=== PATIENT | female | born 1960 | race Caucasian/White ===

== ENCOUNTER → 2017-11-24 06:51 | Outpatient (CLI) | payer MEDICAID, SELFPAY ==
[2017-11-24 07:49] LABS: Basophils % 0.6 % (0.1-2.0); Eosinophils # 0.2 K/mm3 (0.0-0.4); Eosinophils % 2.6 % (0.1-12.0); Hematocrit 45.4 % (37.0-47.0); Hemoglobin 14.6 g/dL (12.2-16.2); Lymphocytes # 1.9 K/mm3 (0.7-4.5); Lymphocytes % 23.5 K/mm3 (10-50); Mean Corpuscular HGB Conc 32.3 g/dL (31.8-35.4); Mean Corpuscular Hemoglobin 29.3 pg (27.0-31.2); Mean Corpuscular Volume 90.9 fl (81-99); Mean Platelet Volume 7.7 fl (7.4-10.4); Monocytes # 0.5 K/mm3 (0.1-1.0); Monocytes % 6.1 % (1.7-9.3); Neutrophils # 5.4 K/mm3 (1.8-7.8); Neutrophils % 67.3 % (37.0-80.0); Platelet Count 279 K/mm3 (142-424); Red Blood Count 4.99 M/mm3 (4.20-5.40); Red Cell Distribution Width 12.8 % (11.5-17.5)
[2017-11-24 08:07] LABS: Alanine Aminotransferase 33 U/L (12-78); Albumin Level 3.7 gm/dL (3.4-5.0); Albumin/Globulin Ratio 0.9 (1.1-1.8); Alkaline Phosphatase 85 U/L (46-116); Anion Gap 8.8 mEq/L (5-15); Aspartate Amino Transferase 16 U/L (15-37); Bilirubin,Total 0.6 mg/dL (0.2-1.0); Blood Urea Nitrogen 12 mg/dL (7-18); Calcium 9.1 mg/dL (8.5-10.1); Carbon Dioxide 31 mmol/L (21.0-32.0); Chloride 102 mmol/L (98-107); Chol/HDL Ratio 2.7 (1-3.5); Cholesterol 130 mg/dL (140-200); Creatinine,Serum 0.66 mg/dL (0.55-1.02); Estimated Glomerular Filt Rate 92 ml/min (>60); GFR (African American) 111 ML/MIN (>60); Globulin 4.2 gm/dl (1.3-3.2); Glucose 140 mg/dL (74-106); HDL Cholesterol 48 mg/dL (29-89); LDL Cholesterol 52 mg/dL (0-130); Potassium 3.8 mmoL/L (3.5-5.1); Sodium 138 mmol/L (136-145); Thyroid Stimulating Hormone 0.81 uIU/ml (0.358-3.740); Total Protein,Serum 7.9 gm/dL (6.4-8.2); Triglycerides 149 mg/dL (30-200); VLDL Cholesterol 30 mg/dL (0-40)
[2017-11-24 08:37] LABS: Hemoglobin A1C 6.4 % (0.0-7.0)
== END ==
PROVIDERS: PCP Internal Medicine Adolescent Medicine; Visit Provider Internal Medicine Adolescent Medicine
DX: E03.9 Hypothyroidism, unspecified (principal); E04.1 Nontoxic single thyroid nodule; E11.9 Type 2 diabetes mellitus without complications; E78.5 Hyperlipidemia, unspecified
CPT/HCPCS: 36415; 80053; 80061; 83036; 84443; 85025

== ENCOUNTER → 2017-12-28 10:11 | Outpatient (CLI) | payer MEDICAID, SELFPAY ==
--- NOTE | 2017-12-28 10:13 | MM_ITS ---
MM Dig screening mamm BI w/CAD CAD Screening ORDERING PHYSICIAN : Portillo Hooper MD PATIENT AGE: 57 years GENDER: Female COMPARISON: : November 2016, 2015, 2014 bilateral digital mammograms utilized INDICATION: No hormones. No new complaints Previous benign excisional biopsy right breast. Lumpectomy scar 10-11:00 Noncontributory family history TECHNIQUE: Standard CC and MLO images were obtained. R2 CAD reviewed. FINDINGS: Fairly low-density breast with minimal residual fibroglandular elements extending towards the upper outer quadrant of central portion of breast. No new findings. No dominant mass nor suspicious calcifications. . CAD computer review highlights no areas of concern either on today's study IMPRESSION: Stable bilateral mammogram. No new areas of concern. Bilateral follow-up in one year recommended. BI-RADS Category: 1 Negative RECOMMENDED FOLLOW-UP: 1YR - 1 YEAR FOLLOW-UP (A letter has been sent to the patient regarding results of the study.)
== END ==
PROVIDERS: Family Provider Internal Medicine Adolescent Medicine; PCP Internal Medicine Adolescent Medicine; Visit Provider Internal Medicine Adolescent Medicine
DX: Z12.31 Encounter for screening mammogram for malignant neoplasm of breast (principal)
CPT/HCPCS: 77067

== ENCOUNTER → 2018-07-07 13:14 | Outpatient (CLI) | payer MEDICAID, SELFPAY ==
--- NOTE | 2018-07-07 13:16 | MR_ITS ---
MR lumbar spine wo con, MR 3-d myelogram/MRCP HISTORY: Low back pain with right leg pain and numbness ITS.REASON: LUMBAR NEURALGIA ORDERING PHYSICIAN: Portillo Hooper MD PATIENT AGE: 58 years Comparison: 03/04/2013 TECHNIQUE: Standard multiplanar multiecho sequences are performed without contrast. 3-D MIP and myelographic images are also rendered and reviewed FINDINGS: There is a transitional segment at the lumbosacral junction. This is labeled as S1 on today's images previously this was labeled as L6. The spinal cord ends at the L1 level. L1-L2: Unremarkable. L2-L3: Unremarkable. L3-L4: There is minimal retrolisthesis of L3 x 3 mm with mild degenerative disc disease at that level and minimal bulging disc. There is mild facet and ligamentum flavum hypertrophy. L4-L5: Mild concentric bulging disc slightly eccentric towards the left with [id number] left-sided foraminal narrowing. Mild facet hypertrophic change. L5-S1: Degenerative disc disease with bulging disc. There is mild anterolisthesis of L5 of 3 mm. There is moderate right-sided foraminal narrowing from facet and ligamentum flavum hypertrophy and the bulging disc. There is mild left foraminal narrowing. Borderline canal narrowing at L5-S1 No disc herniation is evident. IMPRESSION: 1. L3-L4: There is minimal retrolisthesis of L3 x 3 mm with mild degenerative disc disease at that level and minimal bulging disc. There is mild facet and ligamentum flavum hypertrophy. 2. L4-L5: Mild concentric bulging disc slightly eccentric towards the left with [id number] left-sided foraminal narrowing. Mild facet hypertrophic change. 3. L5-S1: Degenerative disc disease with bulging disc. There is mild anterolisthesis of L5 of 3 mm. There is moderate right-sided foraminal narrowing from facet and ligamentum flavum hypertrophy and the bulging disc. There is mild left foraminal narrowing. Borderline canal narrowing at L5-S1. These findings are slightly worse on today's study when compared to the previous exam 4. There is a transitional segment at the lumbosacral junction. This is labeled as S1. Please correlate with lateral lumbar radiographs if any intervention is contemplated
--- NOTE | 2018-07-07 13:16 | MR_ITS ---
MR lumbar spine wo con, MR 3-d myelogram/MRCP HISTORY: Low back pain with right leg pain and numbness ITS.REASON: LUMBAR NEURALGIA ORDERING PHYSICIAN: Portillo Hooper MD PATIENT AGE: 58 years Comparison: 03/04/2013 TECHNIQUE: Standard multiplanar multiecho sequences are performed without contrast. 3-D MIP and myelographic images are also rendered and reviewed FINDINGS: There is a transitional segment at the lumbosacral junction. This is labeled as S1 on today's images previously this was labeled as L6. The spinal cord ends at the L1 level. L1-L2: Unremarkable. L2-L3: Unremarkable. L3-L4: There is minimal retrolisthesis of L3 x 3 mm with mild degenerative disc disease at that level and minimal bulging disc. There is mild facet and ligamentum flavum hypertrophy. L4-L5: Mild concentric bulging disc slightly eccentric towards the left with [id number]-[id number] left-sided foraminal narrowing. Mild facet hypertrophic change. L5-S1: Degenerative disc disease with bulging disc. There is mild anterolisthesis of L5 of 3 mm. There is moderate right-sided foraminal narrowing from facet and ligamentum flavum hypertrophy and the bulging disc. There is mild left foraminal narrowing. Borderline canal narrowing at L5-S1 No disc herniation is evident. IMPRESSION: 1. L3-L4: There is minimal retrolisthesis of L3 x 3 mm with mild degenerative disc disease at that level and minimal bulging disc. There is mild facet and ligamentum flavum hypertrophy. 2. L4-L5: Mild concentric bulging disc slightly eccentric towards the left with [id number] left-sided foraminal narrowing. Mild facet hypertrophic change. 3. L5-S1: Degenerative disc disease with bulging disc. There is mild anterolisthesis of L5 of 3 mm. There is moderate right-sided foraminal narrowing from facet and ligamentum flavum hypertrophy and the bulging disc. There is mild left foraminal narrowing. Borderline canal narrowing at L5-S1. These findings are slightly worse on today's study when compared to the previous exam 4. There is a transitional segment at the lumbosacral junction. This is labeled as S1. Please correlate with lateral lumbar radiographs if any intervention is contemplated
== END ==
PROVIDERS: Family Provider Internal Medicine Adolescent Medicine; PCP Internal Medicine Adolescent Medicine; Visit Provider Internal Medicine Adolescent Medicine
DX: M54.16 Radiculopathy, lumbar region (principal)
CPT/HCPCS: 72148; 76376

== ENCOUNTER → 2018-07-14 07:22 | Outpatient (CLI) | payer MEDICAID, SELFPAY ==
[2018-07-14 08:12] LABS: Basophils # 0.1 K/mm3 (0-0.2); Basophils % 0.6 % (0.1-2.0); Eosinophils # 0.2 K/mm3 (0.0-0.4); Eosinophils % 1.8 % (0.1-12.0); Hematocrit 42.2 % (37.0-47.0); Hemoglobin 13.7 g/dL (12.2-16.2); Lymphocytes # 1.8 K/mm3 (0.7-4.5); Lymphocytes % 20.2 K/mm3 (10-50); Mean Corpuscular HGB Conc 32.4 g/dL (31.8-35.4); Mean Corpuscular Hemoglobin 29.7 pg (27.0-31.2); Mean Corpuscular Volume 91.5 fl (81-99); Monocytes # 0.5 K/mm3 (0.1-1.0); Monocytes % 5.5 % (1.7-9.3); Neutrophils # 6.3 K/mm3 (1.8-7.8); Neutrophils % 71.9 % (37.0-80.0); Platelet Count 292 K/mm3 (142-424); Red Blood Count 4.61 M/mm3 (4.20-5.40); Red Cell Distribution Width 13.6 % (11.5-17.5); White Blood Count 8.7 K/mm3 (4.8-10.8)
[2018-07-14 08:23] LABS: Hemoglobin A1C 6.8 % (0.0-7.0)
[2018-07-14 08:44] LABS: Alanine Aminotransferase 29 U/L (12-78); Albumin Level 3.7 gm/dL (3.4-5.0); Albumin/Globulin Ratio 1.1 (1.1-1.8); Alkaline Phosphatase 82 U/L (46-116); Anion Gap 10.9 mEq/L (5-15); Aspartate Amino Transferase 15 U/L (15-37); Bilirubin,Total 0.5 mg/dL (0.2-1.0); Blood Urea Nitrogen 13 mg/dL (7-18); Calcium 9.3 mg/dL (8.5-10.1); Carbon Dioxide 32 mmol/L (21.0-32.0); Chloride 104 mmol/L (98-107); Chol/HDL Ratio 2.8 (1-3.5); Cholesterol 146 mg/dL (140-200); Creatinine,Serum 0.59 mg/dL (0.55-1.02); Estimated Glomerular Filt Rate 104 ml/min (>60); Free Thyroxine Index 3.3 ug/dL (5.93-13.13); GFR (African American) 126 ML/MIN (>60); Globulin 3.4 gm/dl (1.3-3.2); Glucose 99 mg/dL (74-106); HDL Cholesterol 53 mg/dL (29-89); LDL Cholesterol 67 mg/dL (0-130); Potassium 3.9 mmoL/L (3.5-5.1); Sodium 143 mmol/L (136-145); T4 (Thyroxine) 9.2 ug/dl (4.7-13.3); Thyroid Stimulating Hormone 1.68 uIU/ml (0.358-3.740); Total Protein,Serum 7.1 gm/dL (6.4-8.2); Triglycerides 132 mg/dL (30-200); Triiodothryronine (T3) Uptake 36 % (31-39); VLDL Cholesterol 26 mg/dL (0-40)
== END ==
PROVIDERS: PCP Internal Medicine Adolescent Medicine; Visit Provider Internal Medicine Adolescent Medicine
DX: E03.9 Hypothyroidism, unspecified (principal); E11.9 Type 2 diabetes mellitus without complications
CPT/HCPCS: 36415; 80053; 80061; 83036; 84436; 84443; 84479; 85025

== ENCOUNTER → 2018-11-10 07:38 | Outpatient (CLI) | payer MEDICAID, SELFPAY ==
[2018-11-10 09:37] LABS: Anion Gap 11.8 mEq/L (5-15); Blood Urea Nitrogen 14 mg/dL (7-18); Calcium 9.4 mg/dL (8.5-10.1); Carbon Dioxide 31 mmol/L (21.0-32.0); Chloride 104 mmol/L (98-107); Creatinine,Serum 0.65 mg/dL (0.55-1.02); Estimated Glomerular Filt Rate 93 ml/min (>60); Free Thyroxine Index 3.1 ug/dL (5.93-13.13); GFR (African American) 113 ML/MIN (>60); Glucose 143 mg/dL (74-106); Potassium 3.8 mmoL/L (3.5-5.1); Sodium 143 mmol/L (136-145); T4 (Thyroxine) 8.6 ug/dl (4.7-13.3); Thyroid Stimulating Hormone 1.28 uIU/ml (0.358-3.740); Triiodothryronine (T3) Uptake 36 % (31-39)
[2018-11-10 09:47] LABS: Hemoglobin A1C 6.8 % (0.0-7.0)
== END ==
PROVIDERS: Visit Provider Internal Medicine Adolescent Medicine
DX: E11.9 Type 2 diabetes mellitus without complications (principal); E03.9 Hypothyroidism, unspecified; I10 Essential (primary) hypertension
CPT/HCPCS: 36415; 80048; 83036; 84436; 84443; 84479

== ENCOUNTER → 2018-11-18 09:18 | Outpatient (CLI) | payer MEDICAID, SELFPAY ==
--- NOTE | 2018-11-18 09:20 | MM_ITS ---
MM Dig screening mamm BI w/CAD ORDERING PHYSICIAN : Portillo Hooper MD PATIENT AGE: 58 years GENDER: Female COMPARISON: December 2017, November 2016, 2015, 2014. INDICATION: /History.: Routine: Screening mammogram. No hormones. No new complaints. Previous benign excisional biopsy right breast. Noncontributory family history TECHNIQUE: Standard CC and MLO images were obtained. R2 CAD reviewed. FINDINGS: Rrvz-lg-[id number] residual fibroglandular elements, most evident towards superior breast, & upper outer quadrant both breasts. Similar pattern to previous studies with no significant new findings. No dominant mass nor suspicious calcifications. IMPRESSION: ......... Stable bilateral mammogram. No new areas of significant concern. . Bilateral follow-up one year recommended BI-RADS Category: 1 Negative RECOMMENDED FOLLOW-UP: 1YR 1 YEAR FOLLOW-UP (A letter has been sent to the patient regarding results of the study.)
== END ==
PROVIDERS: PCP Internal Medicine Adolescent Medicine; Visit Provider Internal Medicine Adolescent Medicine
DX: Z12.31 Encounter for screening mammogram for malignant neoplasm of breast (principal)
CPT/HCPCS: 77067

== ENCOUNTER → 2019-05-20 09:23 | Outpatient (CLI) | payer MEDICAID, SELFPAY ==
[2019-05-20 11:02] LABS: Alanine Aminotransferase 33 U/L (12-78); Albumin Level 3.9 gm/dL (3.4-5.0); Albumin/Globulin Ratio 1.2 (1.1-1.8); Alkaline Phosphatase 73 U/L (46-116); Aspartate Amino Transferase 25 U/L (15-37); Bilirubin,Total 0.7 mg/dL (0.2-1.0); Blood Urea Nitrogen 12 mg/dL (7-18); Calcium 9.3 mg/dL (8.5-10.1); Carbon Dioxide 32 mmol/L (21.0-32.0); Chloride 103 mmol/L (98-107); Chol/HDL Ratio 2.9 (1-3.5); Cholesterol 141 mg/dL (140-200); Creatinine,Serum 0.65 mg/dL (0.55-1.02); Estimated Glomerular Filt Rate 93 ml/min (>60); Free Thyroxine Index 3.2 ug/dL (5.93-13.13); GFR (African American) 113 ML/MIN (>60); Globulin 3.2 gm/dl (1.3-3.2); Glucose 136 mg/dL (74-106); HDL Cholesterol 49 mg/dL (29-89); LDL Cholesterol 64 mg/dL (0-130); Sodium 141 mmol/L (136-145); Total Protein,Serum 7.1 gm/dL (6.4-8.2); Triglycerides 138 mg/dL (30-200); Triiodothryronine (T3) Uptake 36 % (31-39); VLDL Cholesterol 28 mg/dL (0-40)
== END ==
PROVIDERS: Visit Provider Internal Medicine Adolescent Medicine
DX: E11.9 Type 2 diabetes mellitus without complications (principal); E03.9 Hypothyroidism, unspecified
CPT/HCPCS: 36415; 80053; 80061; 84436; 84443; 84479

== ENCOUNTER → 2019-08-24 09:53 | Outpatient (CLI) | payer OTHER, SELFPAY ==
[2019-08-24 10:29] LABS: Basophils # 0.1 K/mm3 (0-0.2); Basophils % 0.7 % (0.1-2.0); Eosinophils # 0.2 K/mm3 (0.0-0.4); Eosinophils % 1.9 % (0.1-12.0); Hematocrit 42.4 % (37.0-47.0); Hemoglobin 13.6 g/dL (12.2-16.2); Lymphocytes # 1.6 K/mm3 (0.7-4.5); Lymphocytes % 18.6 % (10-50); Mean Corpuscular Hemoglobin 29.3 pg (27.0-31.2); Mean Corpuscular Volume 91.6 fl (81-99); Mean Platelet Volume 7.5 fl (7.4-10.4); Monocytes # 0.5 K/mm3 (0.1-1.0); Monocytes % 5.5 % (1.7-9.3); Neutrophils # 6.2 K/mm3 (1.8-7.8); Neutrophils % 73.3 % (37.0-80.0); Platelet Count 296 K/mm3 (142-424); Red Blood Count 4.63 M/mm3 (4.20-5.40); Red Cell Distribution Width 13.4 % (11.5-17.5); White Blood Count 8.5 K/mm3 (4.8-10.8)
[2019-08-24 11:24] LABS: Hemoglobin A1C 7.1 % (0.0-7.0)
[2019-08-24 11:36] LABS: Alanine Aminotransferase 27 U/L (12-78); Albumin Level 3.8 gm/dL (3.4-5.0); Albumin/Globulin Ratio 1.1 (1.1-1.8); Alkaline Phosphatase 84 U/L (46-116); Aspartate Amino Transferase 18 U/L (15-37); Bilirubin,Total 0.6 mg/dL (0.2-1.0); Blood Urea Nitrogen 14 mg/dL (7-18); Calcium 8.8 mg/dL (8.5-10.1); Carbon Dioxide 28 mmol/L (21.0-32.0); Chloride 103 mmol/L (98-107); Cholesterol 150 mg/dL (140-200); Creatinine,Serum 0.61 mg/dL (0.55-1.02); Estimated Glomerular Filt Rate 100 ml/min (>60); GFR (African American) 121 ML/MIN (>60); Globulin 3.4 gm/dl (1.3-3.2); Glucose 143 mg/dL (74-106); HDL Cholesterol 50 mg/dL (29-89); LDL Cholesterol 72 mg/dL (0-130); Sodium 141 mmol/L (136-145); Thyroid Stimulating Hormone 0.76 uIU/ml (0.358-3.740); Total Protein,Serum 7.2 gm/dL (6.4-8.2); Triglycerides 140 mg/dL (30-200); VLDL Cholesterol 28 mg/dL (0-40)
== END ==
PROVIDERS: Visit Provider Internal Medicine Adolescent Medicine
DX: E03.9 Hypothyroidism, unspecified (principal); E11.9 Type 2 diabetes mellitus without complications
CPT/HCPCS: 36415; 80053; 80061; 83036; 84443; 85025

== ENCOUNTER → 2019-11-21 08:44 | Outpatient (CLI) | payer OTHER, SELFPAY ==
--- NOTE | 2019-11-21 08:52 | MM_ITS ---
PROCEDURE: MM DIG SCREENING MAMM BI W/CAD CLINICAL INDICATION: SCREENING There is no personal or family history of breast cancer. There has been a previous biopsy right breast for benign disease. COMPARISON: [facility] DIG MAMM-SCREEN SEGUNDO W/CAD from 12/19/2016 [facility] MM Dig screening mamm BI w/CAD from 12/28/2017 [facility] MM Dig screening mamm BI w/CAD from 11/18/2018 TECHNIQUE: Standard CC and MLO images and 3D Tomosynthesis was obtained. R2 CAD reviewed. FINDINGS: The breasts are composed primarily of fat with minimal residual glandular elements in the central portions of both breasts. There is a mole marker right breast. David images were reviewed. There is no suspicious lesion in either breast and no suspicious microcalcifications. IMPRESSION: Fatty type breast parenchyma with no suspicious lesions seen BI-RAD Category: 1 Negative FOLLOW-UP: 1YR 1 Year Follow-up (A letter has been sent to the patient regarding results of the study.) Dictated by: Dr. Claude Nino MD 11/24/2019 09:[address] Claude Nino MD in [place] 11/24/2019 09:54
== END ==
PROVIDERS: PCP Internal Medicine Adolescent Medicine; Visit Provider Nurse Practitioner Family
DX: Z12.31 Encounter for screening mammogram for malignant neoplasm of breast (principal)
CPT/HCPCS: 77063; 77067

== ENCOUNTER → 2020-04-10 08:56 | Outpatient (CLI) | payer OTHER, SELFPAY ==
[2020-04-10 09:48] LABS: Basophils # 0.1 K/mm3 (0-0.2); Basophils % 0.9 % (0.1-2.0); Eosinophils # 0.2 K/mm3 (0.0-0.4); Eosinophils % 3.1 % (0.1-12.0); Hematocrit 41.1 % (37.0-47.0); Hemoglobin 13.3 g/dL (12.2-16.2); Lymphocytes # 1.6 K/mm3 (0.7-4.5); Lymphocytes % 29.4 % (10-50); Mean Corpuscular HGB Conc 32.3 g/dL (31.8-35.4); Mean Platelet Volume 7.4 fl (7.4-10.4); Monocytes # 0.4 K/mm3 (0.1-1.0); Monocytes % 6.4 % (1.7-9.3); Neutrophils # 3.3 K/mm3 (1.8-7.8); Neutrophils % 60.1 % (37.0-80.0); Platelet Count 239 K/mm3 (142-424); Red Blood Count 4.42 M/mm3 (4.20-5.40); Red Cell Distribution Width 13.8 % (11.5-17.5); White Blood Count 5.6 K/mm3 (4.8-10.8)
[2020-04-10 10:28] LABS: Alanine Aminotransferase 41 U/L (12-78); Albumin Level 4.1 g/dl (3.5-5.0); Albumin/Globulin Ratio 1.4 (1.1-1.8); Alkaline Phosphatase 108 U/L (38-126); Anion Gap 11.5 mEq/L (5-15); Aspartate Amino Transferase 43 U/L (14-36); Bilirubin,Total 0.8 mg/dl (0.2-1.3); Blood Urea Nitrogen 11 mg/dl (7-17); Calcium 9.6 mg/dl (8.4-10.2); Carbon Dioxide 32 mmol/L (22.0-30.0); Chloride 101 mmol/L (98-107); Chol/HDL Ratio 3.2 (1-3.5); Cholesterol 142 mg/dl (140-200); Estimated Glomerular Filt Rate 125 ml/min (>60); GFR (African American) 152 ML/MIN (>60); Glucose 148 mg/dl (74-100); HDL Cholesterol 44 mg/dl (40-60); Potassium 4.5 mmoL/L (3.5-5.1); Sodium 140 mmol/L (136-145); Total Protein,Serum 7.1 g/dl (6.3-8.2); Triglycerides 187 mg/dl (30-150); VLDL Cholesterol 37 mg/dL (0-40)
[2020-04-10 10:38] LABS: Direct LDL Cholesterol 73.13 mg/dL (100-129)
[2020-04-10 11:02] LABS: Thyroid Stimulating Hormone 0.95 uIU/mL (0.465-4.68)
[2020-04-10 11:31] LABS: Hemoglobin A1C 6.8 % (4.0-6.0)
[2020-04-10 12:49] LABS: Coronavirus 19 IgG Antibody Negative (Negative); Coronavirus 19 IgM Antibody Negative (Negative)
== END ==
PROVIDERS: Visit Provider Internal Medicine Adolescent Medicine
DX: Z20.828 Contact with and (suspected) exposure to other viral communicable diseases (principal); E78.5 Hyperlipidemia, unspecified; E11.9 Type 2 diabetes mellitus without complications; E03.9 Hypothyroidism, unspecified; I10 Essential (primary) hypertension; Z79.84 Long term (current) use of oral hypoglycemic drugs
CPT/HCPCS: 36415; 80053; 80061; 83036; 84443; 85025; 86328

== ENCOUNTER 2020-05-04 10:36 | Outpatient (RCR) | payer OTHER, SELFPAY ==
--- NOTE | 2020-05-04 12:40 | HMH.OTOPEV ---
OT Inpatient Evaluation Rehab OT Outpatient Eval Start: 05/04/20 11:57 Freq: Status: Active Protocol: Document 05/04/20 11:58 MICHAELJAMEE (Rec: 05/04/20 12:40 DEION [id number]) Electronically Signed By Sbaa Edwards OT 05/04/20 11:58 Outpatient Therapy Subjective History Subjective History 60 year old female referred to OP OT services after having left shoulder pain for ~2 months. Patient stated injury occured after lifting heavy furniture. Patient stated being allergic to latex. Chief Complaint Pain,Weakness,Decreased Draw Furnace Tender Strength Symptom Type Ache Symptoms Relieved By OTC Meds Symptoms Aggravated By Physical Activity,Lifting Prior Functional Limitations None Current Functional Limitations Reaching,Lifting Symptom Description Constant and Continuous Level of pain today (0-10) 7 Pain scale - at its best (0-10) 7 Pain scale - at its worst (0-10) 9 Shoulder/Elbow Eval Shoulder Objective Measurements Shoulder ROM Left Shoulder Abduction Active Range of 90 Motion (degrees) Shoulder Flexion Active Range of Motion 130 (degrees) Query Text: Shoulder External Rotation Active Range 70 of Motion (degrees) Shoulder Internal Rotation Active Range 55 of Motion (degrees) pain with active ROM shoulder exam left standard Shoulder MMT Shoulder Extension Strength Grade 3+ Fair+ Shoulder Flexion Strength Grade 3+ Fair+ Shoulder Horizontal Abduction Strength 3+ Fair+ Grade Shoulder Horizontal Adduction Strength 3+ Fair+ Grade Infraspinatus/Teres Minor Strength Grade 3+ Fair+ Shoulder External Rotation Strength 3+ Fair+ Grade Shoulder Internal Rotation Strength 3+ Fair+ Grade Shoulder Special Tests impingement sign present shoulder exam left standard Shoulder Drop Arm Test Negative Left Shoulder Empty Can (Supraspinatus) Test Negative Left Shoulder Vargas-Richard Impingement Positive Left Test Elbow Objective Measurements OT Outpatient Assessment Impairments Problems/Impairments Impaired Range of Motion, Impaired Strength,Impaired Endurance,Subjective C/O Pain Prognosis Rehab Potential Good Clinical Impression Consistent with Diagnosis Yes Short Term Goals Number of Weeks 2 Increase Range of Motion Yes: AROM of L U
== END 2020-05-04 11:24 | disposition home or self-care (01) ==
LOC: OT 10:36
PROVIDERS: PCP Internal Medicine Adolescent Medicine; Visit Provider Internal Medicine Adolescent Medicine
DX: M75.22 Bicipital tendinitis, left shoulder (principal)
CPT/HCPCS: 97165

== ENCOUNTER → 2020-05-09 14:37 | Outpatient (CLI) | payer OTHER, SELFPAY | PROVIDERS: PCP Internal Medicine Adolescent Medicine; Visit Provider Internal Medicine Adolescent Medicine | DX: Z03.818 Encounter for observation for suspected exposure to other biological agents ruled out (principal) | CPT/HCPCS: U0003 ==

== ENCOUNTER → 2020-07-17 10:26 | Outpatient (CLI) | payer OTHER, SELFPAY ==
[2020-07-18 08:16] LABS: Hep A Ab, IgM Negative (Negative); Hepatitis B Core Antibody IgM Negative (Negative); Hepatitis B Surface Antigen Negative (Negative)
[2020-07-18 13:53] LABS: HIV Screen 4th Generation wRfx Non Reactive (Non Reactive); Hepatitis C Antibody <0.1 s/co ratio (0.0-0.9); Rapid Plasma Reagin Ab Titer Non Reactive (NonRea<1:1)
== END ==
PROVIDERS: Visit Provider Obstetrics & Gynecology
DX: Z01.419 Encounter for gynecological examination (general) (routine) without abnormal findings (principal)
CPT/HCPCS: 80074; 86592; 86703; G0432

== ENCOUNTER → 2020-09-24 16:56 | Outpatient (CLI) | payer OTHER, SELFPAY ==
[2020-09-28 07:55] LABS: Neisseria gonorrhoeae, NAA Negative (Negative)
== END ==
LOC: LAB 16:59 → LAB.DROPOF 09-25 09:29
PROVIDERS: Visit Provider Obstetrics & Gynecology
DX: Z72.51 High risk heterosexual behavior (principal)
CPT/HCPCS: 87491; 87591

== ENCOUNTER → 2021-01-14 10:40 | Outpatient (CLI) | payer OTHER, SELFPAY ==
--- NOTE | 2021-01-14 10:42 | MM_ITS ---
PROCEDURE INFORMATION: Exam: MG Screening 3D Mammography Exam date and time: 01/14/2021 10:42 AM Age: 61 years old Clinical indication: Encounter for screening mammogram for malignant neoplasm of breast TECHNIQUE: Imaging protocol: Screening tomosynthesis and 2D mammography including computer-aided detection (CAD) when performed. COMPARISON: 1. MG MM DIG SCREENING MAMM BI W/CAD 11/21/2019 9:15 AM 2. MG [facility] MM Dig screening mamm BI w/CAD 11/18/2018 9:25 AM 3. MG [facility] MM Dig screening mamm BI w/CAD 12/28/2017 10:24 AM 4. MG [facility] DIG MAMM-SCREEN SEGUNDO W/CAD 12/19/2016 10:44 AM FINDINGS: MAMMOGRAPHY: Breast composition: There are scattered areas of fibroglandular density. Mass: No new suspicious masses. Architectural distortion: No suspicious distortion. Calcifications: No suspicious calcifications. Asymmetric density: None. Skin thickening: None. Axillary adenopathy: None. IMPRESSION: No mammographic evidence of malignancy. Annual screening is recommended unless otherwise clinically indicated. ASSESSMENT: BI-RADS Category 1: Negative
== END ==
PROVIDERS: PCP Internal Medicine Adolescent Medicine; Visit Provider Internal Medicine Adolescent Medicine
DX: Z12.31 Encounter for screening mammogram for malignant neoplasm of breast (principal)
CPT/HCPCS: 77063; 77067

== ENCOUNTER → 2021-01-21 12:23 | Outpatient (CLI) | payer OTHER, SELFPAY ==
--- NOTE | 2021-01-21 12:27 | XR_ITS ---
PROCEDURE: XR KNEE LT 3V CLINICAL INDICATION: LT KNEE PAIN COMPARISON: No exams were available for comparison FINDINGS: No fracture or dislocation. No lytic or blastic change. There is normal mineralization. Mild osteoarthritic changes are present involving the medial compartment in patellofemoral joint. Other findings:None. IMPRESSION: Mild osteoarthritis otherwise negative Dictated by: Jose Marte MD 01/21/2021 16:06 Jose Marte MD in [place] 01/21/2021 16:06
== END ==
PROVIDERS: PCP Internal Medicine Adolescent Medicine; Visit Provider Internal Medicine Adolescent Medicine
DX: M25.562 Pain in left knee (principal)
CPT/HCPCS: 73562

== ENCOUNTER → 2021-05-15 10:44 | Outpatient (CLI) | payer OTHER, SELFPAY ==
[2021-05-15 11:08] LABS: Basophils # 0.1 K/mm3 (0-0.2); Basophils % 0.8 % (0.1-2.0); Eosinophils # 0.1 K/mm3 (0.0-0.4); Eosinophils % 1.4 % (0.1-12.0); Hematocrit 44.4 % (37.0-47.0); Hemoglobin 14.6 g/dL (12.2-16.2); Lymphocytes # 2.2 K/mm3 (0.7-4.5); Lymphocytes % 24.3 % (10-50); Mean Corpuscular Hemoglobin 30.6 pg (27.0-31.2); Mean Corpuscular Volume 92.8 fl (81-99); Monocytes # 0.5 K/mm3 (0.1-1.0); Monocytes % 5.2 % (1.7-9.3); Neutrophils # 6.1 K/mm3 (1.8-7.8); Neutrophils % 68.2 % (37.0-80.0); Platelet Count 323 K/mm3 (142-424); Red Blood Count 4.78 M/mm3 (4.20-5.40); Red Cell Distribution Width 13.6 % (11.5-17.5); White Blood Count 8.9 K/mm3 (4.8-10.8)
[2021-05-15 11:32] LABS: Alanine Aminotransferase 17 U/L (12-78); Albumin Level 4.1 g/dl (3.5-5.0); Albumin/Globulin Ratio 1.3 (1.1-1.8); Alkaline Phosphatase 76 U/L (38-126); Anion Gap 11.8 mEq/L (5-15); Aspartate Amino Transferase 23 U/L (14-36); Bilirubin,Total 0.6 mg/dl (0.2-1.3); Blood Urea Nitrogen 10 mg/dl (7-17); Calcium 9.4 mg/dl (8.4-10.2); Carbon Dioxide 32 mmol/L (22.0-30.0); Chloride 102 mmol/L (98-107); Chol/HDL Ratio 3.8 (1-3.5); Cholesterol 230 mg/dl (140-200); Estimated Glomerular Filt Rate 101 ml/min (>60); GFR (African American) 123 ML/MIN (>60); Globulin 3.1 g/dL (1.3-3.2); Glucose 140 mg/dl (74-100); HDL Cholesterol 61 mg/dl (40-60); Potassium 3.8 mmoL/L (3.5-5.1); Sodium 142 mmol/L (136-145); Total Protein,Serum 7.2 g/dl (6.3-8.2); Triglycerides 171 mg/dl (30-150); VLDL Cholesterol 34 mg/dL (0-40)
[2021-05-15 11:44] LABS: Direct LDL Cholesterol 127.66 mg/dL (100-129)
[2021-05-15 12:04] LABS: Thyroid Stimulating Hormone 1.02 uIU/mL (0.465-4.68)
== END ==
PROVIDERS: Visit Provider Internal Medicine Adolescent Medicine
DX: E03.9 Hypothyroidism, unspecified (principal); E78.5 Hyperlipidemia, unspecified; E11.9 Type 2 diabetes mellitus without complications; Z79.84 Long term (current) use of oral hypoglycemic drugs
CPT/HCPCS: 36415; 80053; 80061; 83036; 84443; 85025

== ENCOUNTER → 2021-06-06 09:28 | Outpatient (CLI) | payer OTHER, SELFPAY ==
--- NOTE | 2021-06-06 09:36 | XR_ITS ---
PROCEDURE: XR CHEST 2V CLINICAL HISTORY: PERSISTENT COUGH COMPARISON: No exams were available for comparison FINDINGS: The cardiomediastinal silhouette and pulmonary vascularity are within normal limits. The lungs are clear without infiltrates, suspicious nodules, or pleural effusions. There are mild degenerative changes in the thoracic spine IMPRESSION: No acute findings. Dictated by: Jose Marte MD 06/06/2021 10:20 Jose Marte MD in [place] 06/06/2021 10:20
== END ==
PROVIDERS: PCP Internal Medicine Adolescent Medicine; Visit Provider Nurse Practitioner Family
DX: R05 Cough (principal)
CPT/HCPCS: 71046

== ENCOUNTER → 2021-12-26 09:50 | Outpatient (CLI) | payer OTHER, SELFPAY ==
--- NOTE | 2021-12-26 09:56 | XR_ITS ---
FINAL REPORT CLINICAL HISTORY: pain, no recent known injury, hx of ankle sx FINDINGS: LEFT HIP Two views of the left hip demonstrate no acute fracture or dislocation. There are mild degenerative changes of the left hip and the lower lumbar spine. The visualized bony structures are well aligned. No soft tissue abnormality is seen. IMPRESSION: Mild degenerative change of the left hip and lower lumbar spine. Reviewed, Interpreted and Dictated by Storm Hunter III, MD Transcribed by Brandy Raya Authenticated by Storm Hunter III, MD on 12/26/2021 10:46:25 AM [facility]
--- NOTE | 2021-12-26 09:57 | XR_ITS ---
FINAL REPORT CLINICAL HISTORY: PAIN, hx of ankle sx, no recent known injury FINDINGS: LEFT KNEE Three views of the left knee were obtained. There is no acute fracture or dislocation. There are mild medial compartment degenerative changes. There is no joint effusion. Soft tissues are unremarkable. IMPRESSION: Mild medial compartment degenerative change. Reviewed, Interpreted and Dictated by Storm Hunter III, MD Transcribed by Brandy Raya Authenticated by Storm Hunter III, MD on 12/26/2021 10:51:04 AM [facility]
== END ==
PROVIDERS: PCP Internal Medicine Adolescent Medicine; Visit Provider Internal Medicine Adolescent Medicine
DX: M25.552 Pain in left hip (principal); M25.562 Pain in left knee
CPT/HCPCS: 73502; 73562

== ENCOUNTER → 2022-02-11 09:53 | Outpatient (CLI) | payer OTHER, SELFPAY ==
--- NOTE | 2022-02-11 09:56 | MM_ITS ---
PROCEDURE INFORMATION: Exam: MG Bilateral Screening 3D Mammography Exam date and time: 02/11/2022 10:17 AM Age: 62 years old Clinical indication: Screening examination. No family history of breast cancer. TECHNIQUE: Imaging protocol: Bilateral Screening tomosynthesis and 2D mammography including computer-aided detection (CAD) when performed. COMPARISON: 1. MG MM DIG SCREENING MAMM BI W/CAD 01/14/2021 11:01 AM 2. MG MM DIG SCREENING MAMM BI W/CAD 11/21/2019 9:15 AM 3. MG [facility] MM Dig screening mamm BI w/CAD 11/18/2018 9:25 AM 4. MG [facility] MM Dig screening mamm BI w/CAD 12/28/2017 10:24 AM FINDINGS: MAMMOGRAPHY: Breast composition: There are scattered areas of fibroglandular density. Mass: None. Architectural distortion: None. Calcifications: No suspicious calcifications. Asymmetric density: None. Skin thickening: None. Axillary adenopathy: None. IMPRESSION: No mammographic evidence of malignancy. Annual screening is recommended unless otherwise clinically indicated. ASSESSMENT: BI-RADS Category 1: Negative
== END ==
PROVIDERS: PCP Internal Medicine Adolescent Medicine; Visit Provider Internal Medicine Adolescent Medicine
DX: Z12.31 Encounter for screening mammogram for malignant neoplasm of breast (principal)
CPT/HCPCS: 77063; 77067

== ENCOUNTER 2022-07-29 07:09 | Day surgery (SDC) | payer OTHER, SELFPAY ==
[2022-07-29 07:46] VITALS: BP 126/72; PULSE 68; RESP 18; TEMP 36.1; O2SAT 97; BMI 33.2
[2022-07-29 07:52] LABS: POC Glucose,Bedside 138 (70-110)
--- NOTE | 2022-07-29 07:55 | P.PN_ITS ---
[facility] Medical History (Updated 07/29/22 @ 07:45 by Abdirahman Pryor RN) History of ankle fracture History of anxiety History of breast abscess History of chronic hypertension History of diabetes mellitus History of thyroid disease Surgical History (Updated 07/29/22 @ 07:45 by Abdirahman Pryor RN) History of delivery History of surgical removal of ganglion cyst Family History (Updated 07/29/22 @ 07:45 by Abdirahman Pryor RN) Other Family history of cardiomyopathy Family history of diabetes mellitus type I Social History (Updated 07/29/22 @ 07:46 by Abdirahman Pryor RN) Smoking Status: Never smoker alcohol intake: never substance use type: denies use current occupational status: retired Travel in the last 8 weeks: None household members: none housing: house current occupational exposures/hazards: No caffeine: Yes [facility] Anesthesia Checklist Patient Identification Patient Identification: Arm Band Structural Data Admitted From: Home Planned Operative Procedure/s: Colonoscopy Consent for Planned Operative Procedure(s) Verified: Yes Verified Documents: Surgical Consent and History and Physical NPO Status Verified Time NPO: 00:00 Additional verifications Anesthesia Reactions: No Airway Assessment C-Spine Mobility Assessed: Yes TMJ Mobility Assessed: Yes Dentition: Good Dentition Neurological Assessment Level of Consciousness: Awake and Alert Anesthesia Plan Anesthesia Risk discussed: Yes Anesthesia Plan: Verified ASA Class: II Anesthesia Type: MAC
[2022-07-29 08:23] VITALS: O2SAT 97
--- NOTE | 2022-07-29 09:01 | HMH.SCOPE ---
Procedure: Date: 07/29/22 Patient Date of :: 1960 Procedure Performed:: Colonoscopy with polypectomy Indications:: History of polyps Performing Provider:: Larry Quezada MD Referring Provider:: . Sedation:: Monitored anesthesia care Procedure:: After informed consent was obtained the patient was taken to the endoscopy suite. Sedation ensued after the patient was transferred to the left lateral decubitus position. Pulse, blood pressure, and oxygen saturation were monitored throughout the procedure. Digital rectal exam revealed no significant abnormality. The colonoscope was placed in position. The entire colon was evaluated. The colonoscope was carefully removed and the patient was transferred to recovery in stable condition. Please see findings and specimens below for detail. Findings:: Bowel preparation moderate Fairly significant lack of relaxation (particularly sigmoid) For adjacent hyperplastic-appearing polyps around 15 cm Specimens:: 4 adjacent hyperplastic-appearing polyps around 15 cm (cold biopsy forceps) Recommendations:: Timing of repeat colonoscopy is pending pathology but will likely be around 3-5 years. Complications:: No immediate Estimated blood obtained (mL): 0
[2022-07-29 09:03] VITALS: BP 85/51; PULSE 56; RESP 16; TEMP 36.6; O2SAT 90
[2022-07-29 09:13] VITALS: BP 122/66; PULSE 65; RESP 17; O2SAT 93
[2022-07-29 09:23] VITALS: BP 105/84; PULSE 64; RESP 18; O2SAT 92
[2022-07-29 09:33] VITALS: BP 108/58; PULSE 57; RESP 18; O2SAT 93
== END 2022-07-29 09:35 | disposition home or self-care (01) ==
PROVIDERS: PCP Internal Medicine Adolescent Medicine; Visit Provider Surgery
PROC: 0DJD8ZZ Inspection of Lower Intestinal Tract, Via Natural or Artificial Opening Endoscopic (ICD-10-PCS; CPT 45380; principal; 2022-07-29 08:30)
DX: Z12.11 Encounter for screening for malignant neoplasm of colon (principal); K63.5 Polyp of colon; Z86.010 Personal history of colon polyps; E11.9 Type 2 diabetes mellitus without complications
CPT/HCPCS: 45380; 82962

== ENCOUNTER → 2023-03-10 10:42 | Outpatient (CLI) | payer OTHER, SELFPAY ==
--- NOTE | 2023-03-10 10:42 | MM_ITS ---
PROCEDURE INFORMATION: Exam: MG Bilateral Screening 3D Mammography Exam date and time: 03/10/2023 10:33 AM Age: 63 years old Clinical indication: Screening examination TECHNIQUE: Imaging protocol: Bilateral Screening tomosynthesis and 2D mammography including computer-aided detection (CAD) when performed. COMPARISON: 1. MG MM DIG SCREENING MAMM BI W/CAD 02/11/2022 10:17 AM 2. MG MM DIG SCREENING MAMM BI W/CAD 01/14/2021 11:01 AM FINDINGS: MAMMOGRAPHY: Breast composition: There are scattered areas of fibroglandular density. Mass: None. Architectural distortion: None. Calcifications: No suspicious calcifications. Asymmetric density: None. Skin thickening: None. Axillary adenopathy: None. IMPRESSION: No mammographic evidence of malignancy. Annual screening is recommended unless otherwise clinically indicated. ASSESSMENT: BI-RADS Category 1: Negative
== END ==
PROVIDERS: PCP Internal Medicine Adolescent Medicine; Visit Provider Obstetrics & Gynecology
DX: Z12.31 Encounter for screening mammogram for malignant neoplasm of breast (principal)
CPT/HCPCS: 77063; 77067

== ENCOUNTER 2023-07-07 08:12 | Day surgery (SDC) | payer OTHER, SELFPAY ==
[2023-07-03 16:17] VITALS: BMI 28.3
[2023-07-07] VITALS (7 sets, daily range): BP systolic 86–148; BP diastolic 49–78; PULSE 62–74; RESP 14–18; TEMP 36.1–36.2; O2SAT 86–98
[2023-07-07 08:50] LABS: POC Glucose,Bedside 137 (70-110)
--- NOTE | 2023-07-07 09:01 | P.PNANES_ITS ---
[facility] Disclaimer: The information contained in this section may have been updated after the patient was seen, as this information can be updated by other users. Medical History History of ankle fracture History of anxiety History of breast abscess History of chronic hypertension History of diabetes mellitus History of thyroid disease Surgical History History of delivery History of colonoscopy History of surgical removal of ganglion cyst Family History Other Family history of cardiomyopathy Family history of diabetes mellitus type I Social History Smoking Status: Never smoker alcohol intake: current substance use type: denies use current occupational status: retired Travel in the last 8 weeks: None household members: none housing: house current occupational exposures/hazards: No caffeine: Yes [facility] Anesthesia Checklist Patient Identification Patient Identification: Arm Band and Verbal (Name & ) Structural Data Admitted From: Home Planned Operative Procedure/s: Colonoscopy Consent for Planned Operative Procedure(s) Verified: Yes NPO Status Verified Time NPO: 00:00 Additional verifications Anesthesia Reactions: No Airway Assessment Mallampati Score:: Class II C-Spine Mobility Assessed: Yes TMJ Mobility Assessed: Yes Dentition: Good Dentition Neurological Assessment Level of Consciousness: Awake Hx Seizures: No Numbness or tingling in extremities: No Anesthesia Plan Anesthesia Risk discussed: Yes Anesthesia Plan: Verified ASA Class: III Anesthesia Type: MAC
--- NOTE | 2023-07-07 09:07 | HMH.SCOPE ---
Procedure: Date: 07/07/23 Patient Date of :: 1960 Procedure Performed:: Colonoscopy Indications:: History of colon polyps Colonoscopy July 2022 was somewhat complicated by moderate bowel preparation and poor relaxation. Adjacent sessile serrated adenomas were excised at 15 cm. Performing Provider:: Larry Quezada MD Referring Provider:: . Sedation:: Monitored anesthesia care Procedure:: After informed consent was obtained the patient was taken to the endoscopy suite. Sedation ensued after the patient was transferred to the left lateral decubitus position. Pulse, blood pressure, and oxygen saturation were monitored throughout the procedure. Digital rectal exam revealed no significant abnormality. The colonoscope was placed in position. The entire colon was evaluated. The colonoscope was carefully removed and the patient was transferred to recovery in stable condition. Please see findings and specimens below for detail. Findings:: Bowel preparation moderate to poor Profound lack of relaxation/spasticity Severe tortuosity Adjacent right colon polyps (x3) Specimens:: Adjacent right colon polyps (x3) -cold snare Recommendations:: Timing of repeat colonoscopy is pending pathology but likely be around 1-2 years with extended bowel preparation secondary to limited preparation, lack of relaxation/spasticity, and tortuosity. Complications:: No immediate Estimated blood obtained (mL): 1 Colonoscopy Component Colonoscopy Component Was a colonoscopy performed during today's procedure?: Yes Recommended follow up colonoscopy of at least 10 years?: No If no, follow up colonoscopy recommended in ___ years?: (See above) Reason for not recommending >/= 10 yr follow-up interval?: (See above)
== END 2023-07-07 10:31 | disposition home or self-care (01) ==
PROVIDERS: PCP Internal Medicine Adolescent Medicine; Visit Provider Surgery
PROC: 0DJD8ZZ Inspection of Lower Intestinal Tract, Via Natural or Artificial Opening Endoscopic (ICD-10-PCS; CPT 45385; principal; 2023-07-07 09:30)
DX: Z12.11 Encounter for screening for malignant neoplasm of colon (principal); Z86.010 Personal history of colon polyps; K56.2 Volvulus; D12.2 Benign neoplasm of ascending colon; E11.9 Type 2 diabetes mellitus without complications
CPT/HCPCS: 45385; 82962; J2405; J2704

== ENCOUNTER 2024-05-04 11:33 | Outpatient (CLI) | payer MEDICARE, OTHER, SELFPAY ==
--- NOTE | 2024-05-04 11:36 | MM_ITS ---
PROCEDURE INFORMATION: Exam: MG Bilateral Screening 3D Mammography Exam date and time: 05/04/2024 11:25 AM Age: 64 years old Clinical indication: Screening. No family history of breast cancer. TECHNIQUE: Imaging protocol: Bilateral Screening tomosynthesis and 2D mammography including computer-aided detection (CAD) when performed. COMPARISON: 1. MG MM DIG SCREENING MAMM BI W/CAD 03/10/2023 10:33 AM 2. MG MM DIG SCREENING MAMM BI W/CAD 02/11/2022 10:17 AM 3. MG MM DIG SCREENING MAMM BI W/CAD 01/14/2021 11:01 AM 4. MG MM DIG SCREENING MAMM BI W/CAD 11/21/2019 9:15 AM FINDINGS: MAMMOGRAPHY: Breast composition: There are scattered areas of fibroglandular density. Mass: None. Architectural distortion: None. Calcifications: No suspicious calcifications. Asymmetric density: None. Skin thickening: None. Axillary adenopathy: None. IMPRESSION: No mammographic evidence of malignancy. Annual screening is recommended unless otherwise clinically indicated. ASSESSMENT: BI-RADS Category 1: Negative
== END 2024-05-04 23:59 | disposition home or self-care (01) ==
LOC: RAD 11:34
PROVIDERS: PCP Internal Medicine Adolescent Medicine; Visit Provider Internal Medicine Adolescent Medicine
DX: Z12.31 Encounter for screening mammogram for malignant neoplasm of breast (principal)
CPT/HCPCS: 77063; 77067

== ENCOUNTER 2025-05-30 12:45 | Outpatient (CLI) | payer MEDICARE, OTHER, SELFPAY ==
--- OUTSIDE RECORDS SUMMARY | 2025-04-27 13:15 | XMS_ITS | Encounter Summary ---
Author Organization [facility] Address [address] [place] [address] Care Team Providers Care Barker Operator Name Role Phone Portillo Hooper MD Primary Care Provider [phone] Reason for Referral * MRI/CAT Scan (Routine) - AFF Authorization Not Needed Specialty Diagnoses / Procedures Referred By Contac t Referred To Contact Orthopedic Surgery Diagnoses Right knee pain, unspecified chronicity Sprain of right knee, unspecified ligament, initial encounter Primary osteoarthritis of right knee Acute medial meniscus tear of right knee, initial encounter Procedures MRI KNEE RIGHT WO CONTRAST Don Matias PA-C [address] [place] [phone] Phone: tel: fax: [facility] [address] [place], [place] [address] Phone: tel: fax: Referral ID Status Reason Start Date Expiration Date Visits Requested Visits Authorized [id number] AFF Authorization Not Needed 04/27/2025 04/27/2026 1 1 Reason for Visit * Reason Comments Follow-up Encounter Details Date Type Department Care Team (Latest Contact Info) Description 04/27/2025 1:15 PM EDT Office Visit [place] [phone] Don Matias PA-C [address] [place] [phone] Right knee pain, unspecified chronicity (Primary Dx); Sprain of right knee, unspecified ligament, initial encounter; Primary osteoarthritis of right knee; Acute medial meniscus tear of right knee, initial encounter Social History Tobacco Use Types Packs/Day Years Used Date Smoking Tobacco: Never Smokeless Tobacco: Never Tobacco Cessation:Counseling Given: Not Answered Alcohol Use Standard Drinks/Week Comments Yes 7 (1 standard drink = 0.6 oz pur e alcohol) Comments No Sex and Gender Information Value Date Recorded Sex Assigned at Not on file Legal Sex Female 10:54 AM EDT Gender Identity Not on file Sexual Orientation Not on file documented as of this encounter Progress Notes * Don Matias PA-C - 04/27/2025 1:15 PM EDT Images from the original note were not included. Name: Nadeen Polk Age: 65 y.o. Sex : female : 1960 Don Matias PA-C Date of Visit: 04/27/25 CHIEF COMPLAINT: Chief Complaint Patient presents with ??? Right Knee - Follow-up HISTORY: Patient complains of right knee pain. The pain began 2 months ago. Pain is described as intermittent catching, clicking, swelling and instability. Posterior pain. Symptoms improve with rest, ice, OTCNSAIDs. The symptoms are worse with activity such as walking, exercising, kneeling, and squatting. T reatment to date has been without significant relief. Admits to significant pain and functional limitations AND limited ROM and swelling. Patient has been tried conservative measures for > 6 weeks. This occurred after her last visit when flexing her knee to get into her husbands vehicle and stepping in. Allergies Allergen Reactions ??? Erythromycin Other (See Comments) . ??? Sulfa (Sulfonamide Antibiotics) Other (See Comments) . ??? Contact Metal Agent Hives ??? Penicillin Rash Past Medical History: Diagnosis Date ??? Anesthesia complication slow to wake ??? Essential (primary) hypertension ??? Hypercholesteremia ??? Hypothyroidism ??? PONV (postoperative nausea and vomiting) Past Surgical History: Procedure Laterality Date ??? ANKLE SURGERY Left ??? SECTION ??? CYST REMOVAL right breast ??? JOINT REPLACEMENT Left 02/26/2024 LEFT TOTAL KNEE REPLACEMENT; Surgeon: Don Aguilera MD; Location: [facility]; Service: Orthopedics ??? WRIST SURGERY Right PHYSICAL EXAMINATION: General: Well-appearing, pleasant, appropriate affect, no distress, alert and oriented x3. Neuro: Normal neurosensory response to touch. Cardiovascular: No signs of edema. Lymphatic: No signs of lymphangitis. Skin: Intact, warm and dry. Gait: Walks with a nonantalgic gait. Musculoskeletal: Right knee: Negative for ecchymosis or effusion. Negative for any erythema. No lacerations or abrasions noted. Demonstrates full extension to 0 degrees and flexion to 125 degrees. No instability withvarus or valgus stress testing. No instability with anterior or posterior stress testing. Negative Lorraine. No pain palpable in the popliteal fossa. Patella does not sublux. No calf pain or swelling.No distal thigh pain +Yash exam IMPRESSION: Right knee sprain PLAN: Diagnoses and all orders for this visit: Right knee pain, unspecified chronicity - MRI KNEE RIGHT WO CONTRAST; Future Sprain of right knee, unspecified ligament, initial encounter - MRI KNEE RIGHT WO CONTRAST; Future Primary osteoarthritis of right knee - MRI KNEE RIGHT WO CONTRAST; Future Acute medial meniscus tear of right knee, initial encounter - MRI KNEE RIGHT WO CONTRAST; Future Patient was educated to rest, ice, compression, and elevation (RICE) therapy. Avoid aggravating activities. Continue taking NSAIDs and other analgesics as needed for pain. Patient may need bracing or ambulatory assistance device for knee instability. MRI of knee to rule out internal derangement such as meniscus tear. Follow up after MRI to go over results. X-RAYS: Bilateral standing and Right lateral and Merchant views show mild tricompartmental knee osteoarthritis. Don Matias PA-C 04/27/25 documented in this encounter Plan of Treatment Upcoming Encounters Date Type Department Care Team (Latest Contact Info) Description 06/13/2025 12:30 PM EDT Appointment [place] [facility] [address] [place] [address] Don Aguilera MD [address] [place] [phone] 08/02/2025 8:30 AM EST Hospital [facility] [address] [place] [address] Don Aguilera MD [address] [place] [phone] 08/02/2025 8:30 AM EST - 08/02/2025 9:40 AM EST Surgery [place] [address] Don Aguilera MD [address] [place] [phone] ARTHROPLASTY, KNEE, TOTAL, [id number] 08/07/2025 2:30 PM EST Office Visit [facility] [address] [place] [phone] Wyatt Polk, PT [address] [place] [address] 08/11/2025 1:00 PM EST Office Visit [facility] [address] [place] [address] Don Matias, PAErinC [address] [place] [phone] Scheduled Procedures Name Priority Associated Diagnoses Date/Ti ne ARTHROPLASTY, KNEE, TOTAL, [id number] Primary osteoarthritis of right knee 08/02/2025 8:30 AM EST documented as of this encounter Results * MRI KNEE RIGHT WO CONTRAST (05/10/2025 6:38 PM EDT) Narrative [facility] - 05/10/2025 6:38 PM EDT Please see the scanned MRI report associated with this order on the Imaging tab of the patient's chart. us Don Matias PA-C IMG MRI ORDERABLES Final Re sult [facility] documented in this encounter Visit Diagnoses Diagnosis Right knee pain, unspecified chronicity- Primary Sprain of right knee, unspecified ligament, initial encounter Primary osteoarthritis of right knee Primary localized osteoarthrosis, lower leg Acute medial meniscus tear of right knee, initial encounter Right knee pain, unspecified chronicity Sprain of right knee, unspecified ligament, initial encounter Primary osteoarthritis of right knee Primary localized osteoarthrosis, lower leg Acute medial meniscus tear of right knee, initial encounter Primary osteoarthritis of right knee Primary localized osteoarthrosis, lower leg documented in this encounter Care Teams Barker Operator Relationship Specialty Start Date End Date Portillo Hooper MD [address] [place] [phone] PCP - General Internal Medicine-Adolescent Medicine 01/13/22 documented as of this encounter
--- OUTSIDE RECORDS SUMMARY | 2025-05-10 18:30 | XMS_ITS | Encounter Summary ---
Author Organization [facility] Address [address] [place] [address] Care Team Providers Care Fsr Name Role Phone Portillo Hooper MD Primary Care Provider [phone] Reason for Visit * MRI/CAT Scan (Routine) - AFF Authorization Not Needed Specialty Diagnoses / Procedures Referred By Contac t Referred To Contact Orthopedic Surgery Diagnoses Right knee pain, unspecified chronicity Sprain of right knee, unspecified ligament, initial encounter Primary osteoarthritis of right knee Acute medial meniscus tear of right knee, initial encounter Procedures MRI KNEE RIGHT WO CONTRAST Don Matias PA-C [address] [place] [phone] Phone: tel: fax: [facility] [address] [place] [address] Phone: tel: fax: Referral ID Status Reason Start Date Expiration Date Visits Requested Visits Authorized [id number] AFF Authorization Not Needed 04/27/2025 04/27/2026 1 1 Encounter Details Date Type Department Care Team (Latest Contact Info) Description 05/10/2025 6:30 PM EDT Ancillary Procedure [facility] [address] [place] [address] Don Matias PA-C [address] [place] [phone] Right knee pain, unspecified chronicity; Sprain of right knee, unspecified ligament, initial encounter; Primary osteoarthritis of right knee; Acute medial meniscus tear of right knee, initial encounter Social History Tobacco Use Types Packs/Day Years Used Date Smoking Tobacco: Never Smokeless Tobacco: Never Alcohol Use Standard Drinks/Week Comments Yes 7 (1 standard drink = 0.6 oz pur e alcohol) Comments No Sex and Gender Information Value Date Recorded Sex Assigned at Not on file Legal Sex Female 10:54 AM EDT Gender Identity Not on file Sexual Orientation Not on file documented as of this encounter Plan of Treatment Upcoming Encounters Date Type Department Care Team (Latest Contact Info) Description 06/13/2025 12:30 PM EDT Appointment [place] [facility] [address] [facility] [place] [address] Don Aguilera MD [address] [place] [phone] 08/02/2025 8:30 AM EST Hospital [facility] [address] [place] [address] Don Aguilera MD [address] [place] [phone] 08/02/2025 8:30 AM EST - 08/02/2025 9:40 AM EST [facility] [address] [place] [address] Don Aguilera MD [address] [place] [phone] ARTHROPLASTY, KNEE, TOTAL, [id number] 08/07/2025 2:30 PM EST Office Visit [facility] PT [address] [place] [address] Wyatt Polk, PT [address] [place] [phone] 08/11/2025 1:00 PM EST Office Visit [facility] [address] [place] [address] Don Matias PA-C [address] [place] [phone] Scheduled Procedures Name Priority Associated Diagnoses Date/Ti me ARTHROPLASTY, KNEE, TOTAL, [id number] Primary osteoarthritis of right knee 08/02/2025 8:30 AM EST documented as of this encounter Procedures Procedure Name Priority Date/Time Associated Diagnosis Comments MRI KNEE RIGHT WO CONTRAST Routine 05/10/2025 6:38 PM EDT Right knee pain, unspecified chronicity Sprain of right knee, unspecified ligament, initial encounter Primary osteoarthritis of right knee Acute medial meniscus tear of right knee, initial encounter documented in this encounter Results * MRI KNEE RIGHT WO CONTRAST (05/10/2025 6:38 PM EDT) Narrative [facility] - 05/10/2025 6:38 PM EDT Please see the scanned MRI report associated with this order on the Imaging tab of the patient's chart. us Don Matias PA-C IMG MRI ORDERABLES Final Re sult [facility] documented in this encounter Visit Diagnoses Diagnosis Right knee pain, unspecified chronicity Sprain of right knee, unspecified ligament, initial encounter Primary osteoarthritis of right knee Primary localized osteoarthrosis, lower leg Acute medial meniscus tear of right knee, initial encounter Primary osteoarthritis of right knee Primary localized osteoarthrosis, lower leg documented in this encounter Care Teams Fsr Relationship Specialty Start Date End Date Portillo Hooper MD [address] [place] [phone] PCP - General Internal Medicine-Adolescent Medicine 01/13/22 documented as of this encounter
--- OUTSIDE RECORDS SUMMARY | 2025-05-18 10:45 | XMS_ITS | Encounter Summary ---
Author Organization [facility] Address [address] [place] [address] Care Team Providers Care Tank Pumper Name Role Phone Portillo Hooper MD Primary Care Provider [phone] Reason for Referral * Physical Therapy (Routine) - Pending Review Specialty Diagnoses / Procedures Referred By Latanya hanson Referred To Contact Physical Therapy Diagnoses Primary osteoarthritis of right knee Complex tear of medial meniscus of right knee as current injury, initial encounter Don Aguilera MD [address] [place] [address] Phone: tel: fax: Referral ID Status Reason Start Date Expiration Date V isits Requested Visits Authorized [id number] Pending Review 05/18/2025 05/18/2026 1 1 Question Answer surgical procedure PRE OP TKA Evaluate and Treat Yes Select as appropriate Evaluate and treat appropriately Modalities/Procedures As Indicated Therapeutic Exercise As Indicated Goals: Increase strength, Decrease pain and swelling, Increase ROM, Increase function Additional instructions: Frequency and duration per therapist discretion * MRI/CAT Scan (Routine) - Authorized Specialty Diagnoses / Procedures Referred By Conttd hanson Referred To Contact Radiology Diagnoses Primary osteoarthritis of right knee Complex tear of medial meniscus of right knee as current injury, initial encounter Procedures CT LOWER EXTREMITY RIGHT WO CONTRAST Don Aguilera MD [address] [place] [address] Phone: tel: fax: [address] [place] [address] Phone: tel: fax: Referral ID Status Reason Start Date Expiration Date V isits Requested Visits Authorized [id number] Authorized 05/18/2025 05/18/2026 1 1 * Surgical (Routine) - AFF Authorization Not Needed Specialty Diagnoses / Procedures Referred By Conttd t Referred To Contact Diagnoses Primary osteoarthritis of right knee Complex tear of medial meniscus of right knee as current injury, initial encounter Procedures AMB OC SURGERY COMMUNICATION ORDER Don Aguilera MD [address] [place] [address] Phone: tel: fax: Referral ID Status Reason Start Date Expiration Date Visits Requested Visits Authorized [id number] AFF Authorization Not Needed 05/18/2025 05/18/2026 1 1 Reason for Visit * Reason Comments Follow-up Encounter Details Date Type Department Care Team (Latest Contact Info) Description 05/18/2025 10:45 AM EDT Office Visit [facility] [address] [place] [address] Don Aguilera MD [address] [place] [address] Primary osteoarthritis of right knee (Primary Dx); Complex tear of medial meniscus of right knee as current injury, initial encounter Social History Tobacco Use Types [...] on file documented as of this encounter Last Filed Vital Signs Vital Sign Reading Time Taken Comments Blood Pressure - - Pulse - - Temperature - - Respiratory Rate - - Oxygen Saturation - - Inhaled Oxygen Concentration - - Weight 73.9 kg (163 lb) 05/18/2025 10:53 AM EDT Height - - Body Mass Index 31.83 02/26/2024 6:22 AM EDT documented in this encounter Progress Notes * Don Aguilera MD - 05/18/2025 10:45 AM EDT Images from the original note were not included. Name: Nadeen Polk Age: 65 y.o. Sex : female : 1960 Don Aguilera MD Date of Visit: 05/18/25 CHIEF COMPLAINT: End-Stage knee osteoarthritis with medial meniscus tear HISTORY: Nadeen Polk returns to the office with continual complaints of knee pain. Unfortunately, conservative care has not been effective in managing their pain. Trials of intra-articular cortisone injections, prescribed NSAIDs, therapy, rest, ice, and analgesics have failed. They are having continual pain with ADL's. The patient is considering undergoing a total joint arthroplasty. Treatment has been going on for longer than 3 months, with continual pain. Patient admits to functional limitations due to their knee pain and it interferes with the ability to perform age appropriate activities. Current Smoker - No Physical therapy - Yes BMI - Estimated body mass index is 31.83 kg/m?? as calculated from the following: Height as of 02/26/24: 5' (1.524 m). Weight as of this encounter: 163 lb (73.9 kg). PHYSICAL EXAMINATION: General: Well-appearing, pleasant, appropriate affect, no distress, alert and oriented x3. Neuro: Normal neurosensory response to touch. Cardiovascular: No signs of edema. Lymphatic: No signs of lymphangitis. Skin: Intact, warm and dry. Gait: Walks with a nonantalgic gait. Musculoskeletal: Right knee: +patellar grind +pain over medial and lateral joint line +crepitus IMPRESSION: Right knee end-stage osteoarthritis with medial meniscus tear PLAN: Diagnoses and all orders for this visit: Primary osteoarthritis of right knee - AMB OC SURGERY COMMUNICATION ORDER - CT LOWER EXTREMITY RIGHT WO CONTRAST; Future - AMB REFERRAL TO PHYSICAL THERAPY Complex tear of medial meniscus of right knee as current injury, initial encounter - AMB OC SURGERY COMMUNICATION ORDER - CT LOWER EXTREMITY RIGHT WO CONTRAST; Future - AMB REFERRAL TO PHYSICAL THERAPY 1. The patient has trialed physical therapy and/or non-narcotic pain management, such as non-steroidal anti-inflammatories, both prescription and non- prescription, and Tylenol, and is still unable toachieve pain relief. We have trialed low-impact exercises, activity modifications, intraarticular steroid injections, and/or assistive devices. Unfortunately, the patient is still having pain. We have discussed following modifiable risk factors prior to surgical intervention, up to and including obesity, poorly controlled diabetes, mental health or substance abuse disorders, tobacco use, opioid use, and even malnutrition. 2. Informed consent obtained for Right TOTAL JOINT ARTHROPLASTY. The patient understands there are no guarantees that surgery will make the joint better and could possibly be worse after surgery. Therisks discussed with the patient regarding a total joint replacement include but are not limited tobleeding, infection, persistent pain, worsened pain, stiffness, weakness, aseptic loosening, septicloosening, blood clots, artery damage, nerve damage, especially the neurovascular structures in thepopliteal space as well the common peroneal nerve including the possibility of drop foot, the inability to resume previous level of functioning, as well as perioperative risks such as heart attack, st roke and even . 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 The patient understands the risks involved and despite the risks involved and lack of guaranteethat she would be made better by surgery the patient would still like to proceed. Questions were answered fully and to the patient's satisfaction. No guarantees were expressed or implied. This will be scheduled at the patient's convenience. 3. If patients BMI is > 30 we had a discussion about the risks of surgery and they understand these risks but they still agree to undergo the previously stated surgery. X-RAYS: Bilateral standing and lateral and Merchant views show severe tricompartmental knee osteoarthritis, severe osteosclerosis, severe joint space narrowing. . Kellgren Romero Grade 4, multiple large osteophytes. MRI: IMPRESSION: 1. High-grade/functionally complete radial tear of the medial meniscal posterior root with resulting meniscal hoop strength compromise/extrusion. 2. Moderate patellofemoral and milder medial femorotibial cartilage degeneration. 3. Intact lateral meniscus, cruciate/collateral ligamen ts, and extensor mechanism. 4. Small effusion and Cisse's cyst. 05/18/25 documented in this encounter Plan of Treatment Upcoming Encounters Date Type Department Care Team (Latest Contact Info) Description 06/13/2025 12:30 PM EDT Appointment [place] [address] [place] [address] Don Aguilera MD [address] [place] [phone] 08/02/2025 8:30 AM EST Hospital [facility] [address] [place] [address] Don Aguilera MD [address] 08/02/2025 8:30 AM EST - 08/02/2025 9:40 AM EST [facility] [address] [place] [address] Don Aguilera MD [address] ARTHROPLASTY, KNEE, TOTAL, [id number] 08/07/2025 2:30 PM EST Office Visit [facility] PT [address] [place] [phone] Wyatt Polk, PT [address] [place] [address] 08/11/2025 1:00 PM EST Office Visit [facility] [address] [place] [address] Don Matias, PAErinC [address] [place] [phone] Scheduled Orders Name Type Priority Associated Diagnoses Orde r Schedule CT LOWER EXTREMITY RIGHT WO CONTRAST Imaging Routine Primary osteoarthritis of right knee Complex tear of medial meniscus of right knee as current injury, initial encounter 1 Occurrences starting 05/18/2025 until 05/18/2026 Scheduled Procedures Name Priority Associated Diagnoses Date/Ti me ARTHROPLASTY, KNEE, TOTAL, [id number] Primary osteoarthritis of right knee 08/02/2025 8:30 AM EST Scheduled Referrals Name Type Priority Associated Diagnoses Orde r Schedule AMB REFERRAL TO PHYSICAL THERAPY Outpatient Referral Routine Primary osteoarthritis of right knee Complex tear of medial meniscus of right knee as current injury, initial encounter Ordered: 05/18/2025 documented as of this encounter Visit Diagnoses Diagnosis Primary osteoarthritis of right knee- Primary Primary localized osteoarthrosis, lower leg Complex tear of medial meniscus of right knee as current injury, initial encounter Primary osteoarthritis of right knee Primary localized osteoarthrosis, lower leg documented in this encounter Orders Nursing Count Last Ordered Date First Orde red Date AMB OC SURGERY COMMUNICATION ORDER 1 2024 documented in this encounter Care Teams Tank Pumper Relationship Specialty Start Date End Date Portillo Hooper MD [address] [place] [phone] PCP - General Internal Medicine-Adolescent Medicine 01/13/22 documented as of this encounter
--- OUTSIDE RECORDS SUMMARY | 2025-05-25 07:56 | XMS_ITS | Encounter Summary ---
Author [place] [address] Care Team Providers Care Skiing Teacher Name Role Phone Portillo Hooper MD Primary Care Provider [phone] Reason for Referral * Surgical (Routine) - Pending Review Specialty Diagnoses / Procedures Referred By Latanya hanson Referred To Contact Gastroenterology Diagnoses Encounter for colonoscopy due to history of colonic polyp Procedures COLONOSCOPY SC COLORECTAL SCRN; HI RISK IND SC COLONOSCOPY FLX W/ENDOSCOPIC MUCOSAL RESECTION Aurora Myers MD [address] [place] [address] Phone: tel: fax: Referral ID Status Reason Start Date Expiration Date V isits Requested Visits Authorized [id number] Pending Review 03/08/2025 03/08/2026 1 1 Reason for Visit * Surgical (Routine) - Pending Review Specialty Diagnoses / Procedures Referred By Latanya hanson Referred To Contact Gastroenterology Diagnoses Encounter for colonoscopy due to history of colonic polyp Procedures COLONOSCOPY SC COLORECTAL SCRN; HI RISK IND SC COLONOSCOPY FLX W/ENDOSCOPIC [place] [address] [place] [address] Phone: tel: fax: Referral ID Status Reason Start Date Expiration Date V isits Requested Visits Authorized [id number] Pending Review 03/08/2025 03/08/2026 1 1 Encounter Details Date Type Department Care Team (Late st Contact Info) Description 05/25/2025 7:56 AM EDT - 05/25/2025 11:59 PM EDT Hospital Encounter [facility] [address] [place] [address] Aurora Myers MD [address] [place] [address] Kalyan Crowder MD [address] [facility] [address] [place] [address] Sendy Martinez CRNA [address] [facility] [address] Encounter for colonoscopy due to history of colonic polyp Discharge Disposition: Home or Self Care Social History Tobacco Use Types Packs/Day Years [...] Sign Reading Time Taken Comments Blood Pressure 114/71 05/25/2025 9:37 AM EDT Pulse 64 05/25/2025 9:37 AM EDT Temperature 36.4 C (97.5 F) 05/25/2025 9:16 AM EDT Respiratory Rate 18 05/25/2025 9:37 AM EDT Oxygen Saturation 96% 05/25/2025 9:37 AM EDT Inhaled Oxygen Concentration - - Weight 70.8 kg (156 lb) 05/25/2025 8:15 AM EDT Height 152.4 cm (5') 05/25/2025 8:15 AM EDT Body Mass Index 30.47 05/25/2025 8:15 AM EDT documented in this encounter Discharge Instructions * Discharge Instructions* Rosario Tyler, RN - 05/25/2025 8:53 AM EDT Images from the original note were not included. +++++++++++++++++++++++++++++++++++++++++++++++++++++++++++++++++++ [facility] Discharge Instructions - Following Anesthesia We appreciate the opportunity to care for you today! Here are a few reminders as you head home: A responsible adult, 18 years or older must be in attendance until tomorrow morning. Rest quietly today. May resume usual diet as tolerated or as directed by your surgeon. Do not drive or operate any machinery until tomorrow morning or as instructed. Do not make any legal or important decisions for the next 24 hours. Do not drink alcoholic beverages or take sleeping pills for 24 hours unless otherwise directed. If you received a nerve block for post-operative pain control, protect your blocked arm/leg. It maybe numb. Carefully pad your limb to prevent pressure sores and other injuries. Be careful with applying cold/warm to the blocked limb. Numbness will alter the sensation of the limb and could damage your skin if you cannot correctly feel the temperature. If you have questions or concerns regarding your anesthesia experience, please call our office at . Get Well Soon! [facility] +++++++++++++++++++++++++++++++++++++++++++++++++++++++++++++++++++ [facility] Discharge Instructions - Following Endoscopy A responsible adult, 18 years or older must be in attendance until the next A.M. Rest quietly today. May resume usual diet. Do not drive or operate any machinery until the next A.M., or as instructed. No alcoholic beverages for 24 hours. Do not make any legal or important decisions for the next 24 hours. Call the physician???s office for a follow-up visit or as needed Patient discharged to the care of spouse ADDITIONAL INSTRUCTIONS: Call Dr. Myers at [phone] if the following occurs: Colonoscopy: Severe abdominal pains and swelling (mild abdominal cramps and gas pains can be expected), nausea and vomiting, rectal bleeding (with biopsy or polyps a small amount of blood can be expected), body temp. over 101 degrees, chills. Medications Reviewed No Changes Copy of Discharge Medication Instruction Sheet Given documented in this encounter Medications at Time of Discharge ALPRAZolam (XANAX) 1 mg Oral Tablet Take 1 mg by mouth nightly as needed for Other (anxiety). amLODIPine (NORVASC) 5 mg Oral Tablet 1 tab(s) ascorbic acid, vitamin C, (VITAMIN C) 1,000 mg Oral Tablet Take 1,000 mg by mouth daily. aspirin 81 mg Oral Tablet, Chewable Take 1 Tablet by mouth 2 times daily. 60 Tablet 05/25/2025 atorvastatin (LIPITOR) 20 mg Oral Tablet 1 tab(s) benzonatate (TESSALON) 200 mg Oral Capsule 1 cap(s) 06/06/2021 cetirizine (ZYRTEC) 10 mg Oral Tablet Take by mouth daily. Cholecalciferol, Vitamin D3, 1,250 mcg (50,000 unit) Oral Capsule 1 cap(s) cyclobenzaprine (FLEXERIL) 5 mg Oral TabletIndications:S/ P TKR (total knee replacement), left Take 1 Tablet by mouth nightly as needed for Muscle spasms. 30 Tablet 03/07/2024 elderberry fruit 50 mg/5 mL Oral Syrup Take by mouth. etodolac (LODINE) 400 mg Oral Tablet Take 1 Tablet by mouth 2 times daily. 90 Tablet 2 01/30/2022 fish oil OTC (OMEGA-3 DHA-EPA 300 MG) 300-1,000 mg Oral Capsule, Delayed Release(E.C.) Take 2 g by mouth daily. fluticasone propionate (FLONASE) 50 mcg/actuation Nasl [place], Suspension 1 spray(s) 06/06/2021 JANUMET 50-500 mg Oral Tablet Take 1 Tablet by mouth 2 times daily. LEVOthyroxine (SYNTHROID) 75 mcg Oral Tablet 1 tab(s) meloxicam (MOBIC) 15 mg Oral TabletIndications:S/ P TKR (total knee replacement), left,Primary osteoarthritis of left knee Take 1 Tablet by mouth daily. 30 Tablet 2 09/30/2024 microfibrillar collagen Top Powder Apply topically as needed. multivitamin with folic acid (THERAGRAN) 400 mcg Oral Tablet Take by mouth daily. omeprazole (PRILOSEC) 20 mg Oral Capsule, Delayed Release(E.C.) 2 cap(s) ondansetron (ZOFRAN) 4 mg Oral Tablet Take 1 Tablet by mouth every 4 hours as needed for Nausea. 20 Tablet 02/26/2024 oxyCODONE (ROXICODONE) 5 mg Oral Tablet Take 1 Tablet by mouth every 4 hours as needed for Acute Pain > 3 Days Medically Necessary (R52). 42 Tablet 02/26/2024 traMADoL (ULTRAM) 50 mg Oral TabletIndications:S/ P TKR (total knee replacement), left Take 1 Tablet by mouth every 6 hours as needed for Pain. 40 Tablet 03/10/2024 TURMERIC ORAL Take by mouth. documented as of this encounter Ordered Prescriptions Prescription Sig Dispense Quantity Refills Last Filled Start Date End Date aspirin 81 mg Oral Tablet, Chewable Take 1 Tablet by mouth 2 times daily. 60 Tablet 05/25/2025 documented in this encounter Discharge Disposition Disposition Code Departure Means Destination Home or Self Care documented in this encounter H&P Notes * Aurora Myers MD - 05/25/2025 9:00 AM EDT [facility] Gastroenterology Outpatient Pre-Procedural History and Physical Primary Care Physician: Portillo Hooper MD Pre-Procedural Diagnosis: History of colon polyps Indication(s) For Procedure: same Procedure Planned: Colonoscopy - diagnostic HISTORY OF PRESENT ILLNESS: Nadeen Polk is a 65 y.o. female who has a past medical history of Anesthesia complication, Essential (primary) hypertension, Hypercholesteremia, Hypothyroidism, and PONV (postoperative nausea and vomiting). who presents for the above procedure. Patient is not on anticoagulation. Past Medical History: Diagnosis Date Anesthesia complication slow to wake Essential (primary) hypertension Hypercholesteremia Hypothyroidism PONV (postoperative nausea and vomiting) Past Surgical History: Procedure Laterality Date ANKLE SURGERY Left SECTION CYST REMOVAL right breast JOINT REPLACEMENT Left 02/26/2024 LEFT TOTAL KNEE REPLACEMENT; Surgeon: Don Aguilera MD; Location: [facility]; Service: Orthopedics WRIST SURGERY Right Medications: Current Outpatient Medications on File Prior to Encounter Medication Sig Dispense Refill ALPRAZolam (XANAX) 1 mg Oral Tablet Take 1 mg by mouth nightly as needed for Other (anxiety). amLODIPine (NORVASC) 5 mg Oral Tablet 1 tab(s) ascorbic acid, vitamin C, (VITAMIN C) 1,000 mg Oral Tablet Take 1,000 mg by mouth daily. atorvastatin (LIPITOR) 20 mg Oral Tablet 1 tab(s) benzonatate (TESSALON) 200 mg Oral Capsule 1 cap(s) cetirizine (ZYRTEC) 10 mg Oral Tablet Take by mouth daily. Cholecalciferol, Vitamin D3, 1,250 mcg (50,000 unit) Oral Capsule 1 cap(s) cyclobenzaprine (FLEXERIL) 5 mg Oral Tablet Take 1 Tablet by mouth nightly as needed for Muscle spasms. 30 Tablet 0 elderberry fruit 50 mg/5 mL Oral Syrup Take by mouth. etodolac (LODINE) 400 mg Oral Tablet Take 1 Tablet by mouth 2 times daily. 90 Tablet 2 fish oil OTC (OMEGA-3 DHA-EPA 300 MG) 300-1,000 mg Oral Capsule, Delayed Release(E.C.) Take 2 g by mouth daily. fluticasone propionate (FLONASE) 50 mcg/actuation Nasl [place], Suspension 1 spray(s) JANUMET 50-500 mg Oral Tablet Take 1 Tablet by mouth 2 times daily. LEVOthyroxine (SYNTHROID) 75 mcg Oral Tablet 1 tab(s) meloxicam (MOBIC) 15 mg Oral Tablet Take 1 Tablet by mouth daily. 30 Tablet 2 microfibrillar collagen Top Powder Apply topically as needed. multivitamin with folic acid (THERAGRAN) 400 mcg Oral Tablet Take by mouth daily. omeprazole (PRILOSEC) 20 mg Oral Capsule, Delayed Release(E.C.) 2 cap(s) ondansetron (ZOFRAN) 4 mg Oral Tablet Take 1 Tablet by mouth every 4 hours as needed for Nausea. 20Tablet 0 oxyCODONE (ROXICODONE) 5 mg Oral Tablet Take 1 Tablet by mouth every 4 hours as needed for Acute Pain > 3 Days Medically Necessary (R52). 42 Tablet 0 traMADoL (ULTRAM) 50 mg Oral Tablet Take 1 Tablet by mouth every 6 hours as needed for Pain. 40 Tablet 0 TURMERIC ORAL Take by mouth. No current facility-administered medications on file prior to encounter. Allergies: Allergies Allergen Reactions Erythromycin Other (See Comments) . Sulfa (Sulfonamide Antibiotics) Other (See Comments) . Contact Metal Agent Hives Penicillin Rash History reviewed. No pertinent family history. Social History Socioeconomic History Marital status: Spouse name: Not on file Number of children: Not on file Years of education: Not on file Highest education level: Not on file Occupational History Not on file Tobacco Use Smoking status: Never Smokeless tobacco: Never Vaping Use Vaping status: Never Used Substance and Sexual Activity Alcohol use: Yes Alcohol/week: 4.2 oz Types: 7 Glasses of wine per week Drug use: Never Sexual activity: Not on file Other Topics Concern Not on file Social History Narrative Not on file Social Drivers of Health Financial Resource Strain: Not on file Food Insecurity: Not on file Transportation Needs: Not on file Physical Activity: Not on file Stress: Not on file Social Connections: Not on file Intimate Partner Violence: Not on file Housing Stability: Not on file PHYSICAL EXAM: Vitals: There were no vitals taken for this visit. CONSTITUTIONAL: Awake, alert, cooperative, no apparent distress EYES: PERRL, EOMI ENT: MMM NECK: supple, symmetrical, trachea midline HEMATOLOGIC/LYMPHATICS: no cervical lymphadenopathy and no supraclavicular lymphadenopathy LUNGS: normal respiratory effort CARDIOVASCULAR: regular rate and rhythm ABDOMEN: soft, non-distended, non-tender MUSCULOSKELETAL: there is no redness, warmth, or swelling of the joints NEUROLOGIC: awake and alert; cranial nerves II-XII are grossly intact SKIN: normal skin color, texture, turgor DATA: Lab Results Component Value Date GLUCOSE 134 02/26/2024 No results found for: INR , PROTIME Last Oral Intake: Yesterday Previous Anesthesia Reaction: No Pre-Procedure Assessment: Risks, benefits, potential complications (including but not limited to missed lesions, sedation, bleeding and perforation) and alternatives were discussed with the patient or patient's legally authorized customer solutions representative. The patient's pre-procedural physical assessment indicates that the patient is suitable for and agrees to the planned sedation and procedure. Cardiovascular and Vital signs Stable: Yes Adequate/Patient Oral Airway Yes ASA: 2 ASSESSMENT / PLAN: Nadeen Polk is a 65 y.o. female who presents for the above specified procedure. documented in this encounter Plan of Treatment Upcoming Encounters Date Type Department Care Team (Latest Contact Info) Description 06/13/2025 12:30 PM EDT Appointment [place] [facility] [address] [place] [address] Don Aguilera MD [address] [place] [phone] 08/02/2025 8:30 AM EST Hospital Encounter [facility] [address] [place], [place] [id number] Don Aguilera MD [address] [place] [phone] 08/02/2025 8:30 AM EST - 08/02/2025 9:40 AM EST [facility] [address] [place] [address] Don Aguilera MD [id number] ARTHROPLASTY, KNEE, TOTAL, [id number] 08/07/2025 2:30 PM EST Office Visit [facility] [address] [place] [address] FelicitasWyatt, PT [address] [place] [address] 08/11/2025 1:00 PM EST Office Visit [facility] [address] [place] [address] Don Matias PAKarl [address] [place] [address] Scheduled Procedures Name Priority Associated Diagnoses Date/Ti me ARTHROPLASTY, KNEE, TOTAL, [id number] Primary osteoarthritis of right knee 08/02/2025 8:30 AM EST documented as of this encounter Procedures Procedure Name Priority Date/Time Associated Diagnosis Comments COLONOSCOPY Routine 05/25/2025 9:12 AM EDT Encounter for colonoscopy due to history of colonic polyp GLUCOSE METER POC Routine 05/25/2025 8:2 4 AM EDT documented in this encounter Results * COLONOSCOPY (05/25/2025 9:12 AM EDT) Anatomical Region Laterality Modality Endoscopy Narrative 05/25/2025 9:17 AM EDT Table formatting from the original result was not included. Findings Mild diverticulosis with few diverticula in the sigmoid colon The entire colon appeared normal. Recommendation Repeat colonoscopy in 5 years, due: 05/24/2030 Personal history of colon polyps Pre-Procedure Diagnosis / Indication Encounter for colonoscopy due to history of colonic polyp Post-Procedure Diagnosis None Staff Staff Role Aurora Myers MD Performing Provider Kalyan Crowder MD Anesthesiologist Sendy Martinez CRNA ROUGH RICE TENDER Alissa eHnriquez RN Vpk Teacher Medications See Anesthesia Record. Preprocedure A history and physical has been performed, and patient medication allergies have been reviewed. The patient's tolerance of previous anesthesia has been reviewed. The risks and benefits of the procedure and the sedation options and risks were discussed with the patient. All questions were answered and informed consent obtained. ASA 2 - Patient with mild systemic disease Details of the Procedure The patient underwent monitored anesthesia care, which was administered by an anesthesia professional. The patient's blood pressure, heart rate, level of consciousness, oxygen saturation, respirations, ECG and ETCO2 were monitored throughout the procedure. A digital rectal exam was performed. The scope was introduced through the anus and advanced to the cecum. Retroflexion was performed in the rectum. Bowel prep was adequate. The patient experienced no blood loss. The procedure was not difficult. The patient tolerated the procedure well. There were no apparent adverse events. Patient provided education and educated on specific discharge instructions. Patient educated on medications given during the procedure and new medications for discharge. Patient verbalizes understanding of discharge education. Patient stable and awaiting transport for discharge. Events Procedure Events Event Event Time ENDO SCOPE IN TIME 05/25/2025 9:00 AM ENDO CECUM REACHED 05/25/2025 9:03 AM ENDO SCOPE OUT TIME 05/25/2025 9:11 AM Specimens No specimens collected Anesthesia Event Time In Patient In - Proc. Room 08:54 AM Patient Out - Proc. Room 09:12 AM Aurora Myers MD ENDOSCOPY PROCEDURE ORDE RABSTEPHANIE Final Result * (ABNORMAL) GLUCOSE METER POC (05/25/2025 8:24 AM EDT) [facility] Glucose Meter POC 151(H) 70 - 100 mg/dL 05/25/2025 8:25 AM EDT [facility] Sample Type Capillary 05/25/2025 8:25 AM EDT [facility] Patient Status Non-Critical Patient 05/25/2025 8:25 AM EDT [facility] Blood BLOOD SPECIMEN / Unknown 05/25/2025 8:24 AM EDT 05/25/2025 8:25 AM EDT Aurora Myers MD POINT OF CARE TEST ORDER LEI Final Result Performing Organization Address City/State/[facility] Co de Phone Number [facility] [address] [place] [address] documented in this encounter Visit Diagnoses Diagnosis Primary osteoarthritis of right knee- Primary Primary localized osteoarthrosis, lower leg Encounter for colonoscopy due to history of colonic polyp Special screening for malignant neoplasms, colon Primary osteoarthritis of right knee Primary localized osteoarthrosis, lower leg documented in this encounter Discontinued Medications Medication Sig Discontinue Reason Start Date End Da te polyethylene glycol (GOLYTELY) 236-22.74-6.74 -5.86 gram Oral Recon Soln take as directed by office DELETE-Therapy completed 03/08/2025 05/25/2025 sodium,potassium,mag sulfates 17.5-3.13-1.6 gram Oral Recon Soln Take 6 oz by mouth 2 times daily. SUPREP: The first 6-ounce bottle is taken the evening before your colonoscopy and the second 6-ounce bottle is taken the morning of your colonoscopy. DELETE-Therapy completed 03/14/2025 05/25/2025 aspirin 81 mg Oral Tablet, Chewable Take 1 Tablet by mouth 2 times daily. Patient Reported not taking medication 02/26/2024 05/25/2025 documented as of this encounter Historical Medications * This list may reflect changes made after this encounter. TURMERIC ORAL Take by mouth. added in this encounter Orders Medications Ordered That Jair ht Not Have Been Administered Count Last Ordered Date First Ordered Date droPERidol (INAPSINE) injection 0.625 mg 1 05/25/2025 fentaNYL (SUBLIMAZE) injection 25 mcg 1 12/2024 HYDROmorphone (DILAUDID) injection 0.5 mg 1 05/25/2025 ondansetron (ZOFRAN) injection 4 mg 1 05/25 ondansetron (ZOFRAN-ODT) dis integrating tablet 8 mg 1 05/25/2025 oxyCODONE (ROXICODONE) immed iate release tablet 5 mg 1 05/25/2025 lactated ringers infusion 1 05/24/2025 Discharge Count Last Ordered Date First Orde red Date DISCHARGE PATIENT 1 05/25/2025 documented in this encounter Care Teams Skiing Teacher Relationship Specialty Start Date End Date Portillo Hooper MD [address] [place] [address] [place] [phone] PCP - General Internal Medicine-Adolescent Medicine 01/13/22 documented as of this encounter
--- OUTSIDE RECORDS SUMMARY | 2025-05-25 08:53 | XMS_ITS | Encounter Summary ---
Author Organization [place] [address] Care Team Providers Care Counselor Camp Name Role Phone Portillo Hooper MD Primary Care Provider [phone] Encounter Details Date Type Department Care Team (Late st Contact Info) Description 05/25/2025 8:53 AM EDT Anesthesia Event [facility] [address] [facility] [place] [address] Kalyan Crowder MD [address] [address] Lee Jalloh APRN [address] [place] [id number] Anesthesia Record Procedure Summary Procedure Name Responsible Anesthesiologist Anesthesia Start Time Anesthesia Stop Time COLONOSCOPY Kalyan Crowder MD 05/25/25 0853 5 0913 Events Date Time Event Comment 05/25/2025 0852 0853 An Start 0853 AN Equip Check 0853 Start Supplemental O2 Disabl es direct capture of O2 [ANES AGENT O2 [[id number]] and Air flow [ANES AGENT AIR [[id number]] variables into chart. 0854 An Start Data 0858 Immediate Pre Anesthetic Ass es 0900 Anesthesia Ready 0900 Time out 0900 Incision 0913 an stop data 09 An Stop 912 Handoff I completed my SBAR handoff to the receiving nurse which has included the followin. Identification of the patient, family, or patient surrogate 2. Identification of the responsible practitioner 3. Pertinent medical history 4. Surgical procedure and reason for procedure 5. Intraoperative anesthetic management 6. All current lines, drains and respiratory support. 7. Outstanding follow up orders (X-rays, consults etc) 8. Expectations/Plans for the early post-procedure period 9. Opportunity for questions and acknowledgement of understanding from the receiving PACU/ICU molybdenum steamer operator Meds Name Total propofol (DIPRIVAN) injection 50 mg propofol (DIPRIVAN) infusion 10 mg/mL 90 ,270 mcg lidocaine injection 1% 60 mg ondansetron (ZOFRAN) injection 4 mg /2 m L 4 mg lactated ringers infusion 0 mL * Agents Name O2 N2O Air * Blood No blood administrations on file. Lines, Drains, and Airways Type Details Placement Removal Peripheral IV 05/25/25; 824; 20; Right; Antecubital; 05/25/25; 944; Therapy completed; Catheter intact, Dressing applied, No Complications 05/25/25824 by Karma Del Rosario RN 05/25/25944 by Rosario Tyler, RN Airway Device: Nasal Cannul a Salter; Placement Date: 05/25/25; Placement Time: 852 (created via procedure documentation); Removal Date: 05/25/25; Removal Time: 1454 05/25/25 08 by Sendy Martinez CRNA 05/25/25 145 by Discharge Provider, Automatic documented in this encounter Social History Tobacco Use Types Packs/Day [...] on file documented as of this encounter Procedure Notes * Sendy Martinez CRNA - 05/25/2025 9:03 AM EDTAssociated Order(s): Airway Intraop Airway Placement: Date/Time: 05/25/2025 8:53 AM Airway type: Nasal cannula salter documented in this encounter OR Notes * Anesthesia Postprocedure Evaluation - Kalyan Crowder MD - 05/25/2025 2:53 PM EDT Post-Anesthesia Evaluation Note Patient Name: Nadeen Polk Patient Date: May 25, 2025 Post-Anesthesia Evaluation Patient Location: ENDO Post op vitals: stable Difficult airway: no Nausea controlled: yes Level of consciousness: awake, alert and oriented Post anesthesia pain: adequate analgesia Long acting local anesthetic: n/a Airway patency: patent Respiratory status: spontaneous ventilation and room air Cardiovascular status: stable Hydration status: euvolemic Temperature: Normothermia Perioperative complications: NONE Vitals Value Taken Time BP 114/71 05/25/25 09:37 Resp 18 05/25/25 09:37 SpO2 96 % 05/25/25 09:37 Temp 36.4 ??C (97.5 ??F) 05/25/25 09:16 Pulse 64 05/25/25 09:37 * Anesthesia Preprocedure Evaluation - Kalyan Crowder MD - 05/25/2025 8:50 AM EDT Pre-Anesthesia Evaluation Note Patient Name: Nadeen Polk Sex: female Patient : 1960 Age: 65 y.o. Patient Date: May 25, 2025 COLONOSCOPY Anesthesia Evaluation Previous anesthesia. History of anesthetic complications: Delayed emergence and PONV Airway Mallampati: I Dental - normal exam Dental exam findings: bridge Pulmonary - negative ROS (+) Physical exam: Comments: Clear to auscultation Cardiovascular (+)Hypertension: Hyperlipidemia Physical exam: Rhythm: regular Rate: normal Neuro/Psych - negative ROS GI/Hepatic/Renal Comments: Colon Polyp Endo/Other (+)Hypothyroidism Arthritis: Osteoarthritis Recreational drug use: Alcohol ASSEMBLER CAMPER Additional Pre-evaluation comments Opioids Body mass index is 30.47 kg/m??. Anesthesia Plan ASA 2 Anesthesia Plan: MAC Induction: intravenous Monitors: STD Give zofran intraop Informed consent Anesthetic plan and risks discussed with: patient. Chart Reviewed and patient examined documented in this encounter Miscellaneous Notes * PAT Pre Evaluation for Anesthesia - Lee Jalloh APRN - 05/24/2025 9:32 AM EDT Pre-Anesthesia Evaluation Note Patient Name: Nadeen Polk Sex: female Patient : 1960 Age: 65 y.o. Patient Date: May 24, 2025 COLONOSCOPY Anesthesia Evaluation Previous anesthesia. History of anesthetic complications: Delayed emergence and PONV Airway Dental Pulmonary - negative ROS Cardiovascular (+)Hypertension: Hyperlipidemia Neuro/Psych - negative ROS GI/Hepatic/Renal Comments: Colon Polyp Endo/Other (+)Hypothyroidism Arthritis: Osteoarthritis Recreational drug use: Alcohol ASSEMBLER CAMPER Additional Pre-evaluation comments Opioids There is no height or weight on file to calculate BMI. Anesthesia Plan Anesthesia Plan: MAC Chart Reviewed documented in this encounter Plan of Treatment Upcoming Encounters Date Type Department Care Team (Latest Contact Info) Description 06/13/2025 12:30 PM EDT Appointment Elke MA [address] [facility] [place] [address] Don Aguilera MD [address] 08/02/2025 8:30 AM [facility] Hospital [facility] [address] [place] [address] Don Aguilera MD [address] [place] [address] 08/02/2025 8:30 AM EST - 08/02/2025 9:40 AM [facility] [address] [place] [address] Don Aguilera MD [address] [place] [address] ARTHROPLASTY, KNEE, TOTAL, [id number] 08/07/2025 2:30 PM EST Office Visit [facility] [address] [place] [address] Felicitas Wyatt, PT [address] [place] [address] 08/11/2025 1:00 PM EST Office [facility] [address] [place] [address] Don Matias PA-C [address] [place] [address] Scheduled Procedures Name Priority Associated Diagnoses Date/Ti me ARTHROPLASTY, KNEE, TOTAL, [id number] Primary osteoarthritis of right knee 08/02/2025 8:30 AM EST documented as of this encounter Procedures Procedure Name Priority Date/Time Associated Diagnosis Comments INTRAOP AIRWAY PLACEMENT Routine 05/25/2025 8:53 AM EDT documented in this encounter Results * INTRAOP AIRWAY PLACEMENT (05/25/2025 8:53 AM EDT) Narrative [facility] - 05/25/2025 8:53 AM EDT Sendy Martinez CRNA 05/25/2025 9:03 AM Intraop Airway Placement: Date/Time: 05/25/2025 8:53 AM Airway type: Nasal cannula salter us Kalyan Crowder MD [place] ANESTHESIA Final Result [facility] [address] [place] [address] documented in this encounter Visit Diagnoses Not on filedocumented in this encounter Administered Medications Inactive Administered Medications - up to 1 most recent administrations Medication Order MAR Action Action Date Dose Rate Site lactated ringers infusion Intravenous, at 50 mL/hr, PREPROCEDURE CONTINUOUS, Starting on Jennifer 05/25/25 at 0645, Until Thu05/26/25 at 0427, To be given in SDS/Pre-op Holding Area, Pre-op (Holding/SDS Meds) New Bag 05/25/2025 8:53 AM EDT lidocaine 1% 10 mg/mL (1 %) injection Intravenous, PRN (Anesthesia), Starting on Jennifer 05/25/25 at 0858, Until Jennifer 05/25/25 at 0913, Anesthesia Intra-op Given 05/25/2025 8:58 AM EDT 60 mg ondansetron (ZOFRAN) injection Intravenous, PRN (Anesthesia), Starting on Jennifer 05/25/25 at 0858, Until Jennifer 05/25/25 at 0913, Anesthesia Intra-op Given 05/25/2025 8:58 AM EDT 4 mg propofol (DIPRIVAN) infusion 10 mg/mL Intravenous, CONTINUOUS PRN, Starting on Jennifer 05/25/25 at 0858, Until Jennifer 05/25/25 at 0913, Anesthesia Intra-op Rate/Dose Change 05/25/2025 9:04 AM EDT 75 mcg/kg/min 31.86 mL/hr propofoL (DIPRIVAN) injection Intravenous, PRN (Anesthesia), Starting on Jennifer 05/25/25 at 0858, Until Jennifer 05/25/25 at 0913, Anesthesia Intra-op Given 05/25/2025 8:58 AM EDT 50 mg documented in this encounter Care Teams Counselor Camp Relationship Specialty Start Date End Date Portillo Hooper MD [address] [place] [address] PCP - General Internal Medicine-Adolescent Medicine 01/13/22 documented as of this encounter
--- OUTSIDE RECORDS SUMMARY | 2025-05-30 12:48 | XMS_ITS | Clinical Summary ---
Author Organization [facility] Phone Care Team Providers Care Electric Distribution Engineer Name Role Phone Portillo Hooper MD Primary Care Provider [phone] Allergies Active Allergy Reactions Criticality Noted Date Comments Contact Metal Agent Hives 02/04/2024 Erythromycin Other (See Comments) Medium 06/05/2022 . Penicillin Rash 12/26/2021 Sulfa (Sulfonamide Antibiotics) Other (See Comments) Mediu m 06/05/2022 . Medications atorvastatin (LIPITOR) 20 mg Oral Tablet 1 tab(s) Active amLODIPine (NORVASC) 5 mg Oral Tablet 1 tab(s) Active benzonatate (TESSALON) 200 mg Oral Capsule 1 cap(s) 06/06/20 21 Active Cholecalciferol, Vitamin D3, 1,250 mcg (50,000 unit) Oral Capsule 1 cap(s) Active fluticasone propionate (FLONASE) 50 mcg/actuation Nasl [place], Suspension 1 spray(s) 06/06/20 21 Active LEVOthyroxine (SYNTHROID) 75 mcg Oral Tablet 1 tab(s) Acti ve omeprazole (PRILOSEC) 20 mg Oral Capsule, Delayed Release(E.C.) 2 cap(s) Active etodolac (LODINE) 400 mg Oral Tablet Take 1 Tablet by mouth 2 times daily. 90 Tablet 2 01/31/20 22 Active ascorbic acid, vitamin C, (VITAMIN C) 1,000 mg Oral Tablet Take 1,000 mg by mouth daily. Active multivitamin with folic acid (THERAGRAN) 400 mcg Oral Tablet Take by mouth daily. Active elderberry fruit 50 mg/5 mL Oral Syrup Take by mouth. Activ e fish oil OTC (OMEGA-3 DHA-EPA 300 MG) 300-1,000 mg Oral Capsule, Delayed Release(E.C.) Take 2 g by mouth daily. Active microfibrillar collagen Top Powder Apply topically as needed. Active ALPRAZolam (XANAX) 1 mg Oral Tablet Take 1 mg by mouth nightly as needed for Other (anxiety). Active cetirizine (ZYRTEC) 10 mg Oral Tablet Take by mouth daily. Active JANUMET 50-500 mg Oral Tablet Take 1 Tablet by mouth 2 times daily. Active oxyCODONE (ROXICODONE) 5 mg Oral Tablet Take 1 Tablet by mouth every 4 hours as needed for Acute Pain > 3 Days Medically Necessary (R52). 42 Tablet 02/26/20 24 Active ondansetron (ZOFRAN) 4 mg Oral Tablet Take 1 Tablet by mouth every 4 hours as needed for Nausea. 20 Tablet 02/26/20 24 Active cyclobenzaprine (FLEXERIL) 5 mg Oral TabletIndications :S/P TKR (total knee replacement), left Take 1 Tablet by mouth nightly as needed for Muscle spasms. 30 Tablet 03/07/20 24 Active traMADoL (ULTRAM) 50 mg Oral TabletIndications :S/P TKR (total knee replacement), left Take 1 Tablet by mouth every 6 hours as needed for Pain. 40 Tablet 03/10/20 24 Active meloxicam (MOBIC) 15 mg Oral TabletIndications :S/P TKR (total knee replacement), left,Primary osteoarthritis of left knee Take 1 Tablet by mouth daily. 30 Tablet 2 09/30/19 25 Active TURMERIC ORAL Take by mouth. A ctive aspirin 81 mg Oral Tablet, Chewable Take 1 Tablet by mouth 2 times daily. 60 Tablet 05/25/20 25 Active aspirin 81 mg Oral Tablet, Chewable Take 1 Tablet by mouth 2 times daily. 60 Tablet 02/26/20 24 025 Discontinue d(Patient Reported not taking medication) polyethylene glycol (GOLYTELY) 236-22.74-6.74 -5.86 gram Oral Recon Soln take as directed by office 1 Each 03/08/20 25 025 Discontinue d(DELETE-Th erapy completed) sodium,potassium, mag sulfates 17.5-3.13-1.6 gram Oral Recon Soln Take 6 oz by mouth 2 times daily. SUPREP: The first 6-ounce bottle is taken the evening before your colonoscopy and the second 6-ounce bottle is taken the morning of your colonoscopy. 354 mL 03/14/20 25 025 Discontinue d( erapy completed) Active Problems Problem Noted Date Diagnosed Date Primary osteoarthritis of right knee 05/23/2025 Primary osteoarthritis of left knee 11/06/2023 Encounters Date Type Department Care Team Description 05/25/2025 8:53 AM EDT Anesthesia Event [facility] [address] [place] [address] Kalyan Crowder MD Trog, Lynnsey, KESHAV 05/25/2025 7:56 AM EDT - 05/25/2025 11:59 PM EDT Hospital Encounter [facility] [address] [place] [address] Aurora Myers MD Dolan, Damian F, MD Hofer, Katherine, CRNA Encounter for colonoscopy due to history of colonic polyp Discharge Disposition: Home or Self Care 05/23/2025 Orders Only [facility] [address] [place] [address] Don Aguilera MD Primary osteoarthritis of right knee (Primary Dx) 05/18/2025 10:45 AM EDT Office Visit [address] [address] Don Aguilera MD Primary osteoarthritis of right knee (Primary Dx); Complex tear of medial meniscus of right knee as current injury, initial encounter 05/18/[address] [address] Don Aguilera MD 05/16/2025 Telephone [facility] [address], [address] [id number] Juan Lam, BACK HOE OPERATOR Other 05/10/2025 6:30 PM EDT Ancillary Procedure [address] [place] [address] Don Matias PA-C Right knee pain, unspecified chronicity; Sprain of right knee, unspecified ligament, initial encounter; Primary osteoarthritis of right knee; Acute medial meniscus tear of right knee, initial encounter 05/04/2025 Telephone [facility] [address] [place] [phone] Abby Garcia, RMA Other 04/27/2025 1:15 PM EDT Office Visit [facility] [address] [place] [address] Don Matias PA-C Right knee pain, unspecified chronicity (Primary Dx); Sprain of right knee, unspecified ligament, initial encounter; Primary osteoarthritis of right knee; Acute medial meniscus tear of right knee, initial encounter 03/14/2025 Telephone [facility] [address] [facility] [address], [address]RD [place] [address] Juan Lam, RAKESH Other from Last 3 Months Immunizations Immunization Administration Dates Next Due Tdap 06/26/2023 Surgical History Surgery Date Site/Laterality Comments ANKLE SURGERY Left WRIST SURGERY Right CYST REMOVAL right breast SECTION JOINT REPLACEMENT 02/26/2024 Knee/Left LEFT TOTAL KNEE REPLACEMENT; Surgeon: Don Aguilera MD; Location: [facility]; Service: Orthopedics Medical devices from this surgery are in the Medical Devices section. Medical History Medical History Date Comments Hypothyroidism Essential (primary) hypertension Hypercholesteremia PONV (postoperative nausea and vomiting) Anesthesia complication slow to wake Social History Tobacco Use Types Packs/Day Years [...] on file Sexual Orientation Not on file Obstetrics History Last Filed Vital Signs Vital Sign Reading [...] Mass Index 30.47 05/25/2025 8:15 AM EDT Plan of Treatment Upcoming Encounters Date Type Department Care Team (Latest Contact Info) Description 06/13/2025 12:30 PM EDT Appointment Elke BISHOP [address] [place] [phone] Don Aguilera MD [address] [place] [phone] 08/02/2025 8:30 AM EST Hospital [facility] [address] [place] [address] Don Aguilera MD [address] 08/02/2025 8:30 AM EST - 08/02/2025 9:40 AM EST [facility] [address] [place] [address] Don Aguilera MD [address] [place] [address] ARTHROPLASTY, KNEE, TOTAL, [id number] 08/07/2025 2:30 PM EST Office Visit [facility] [address] [place] [phone] Wyatt Polk, PT [address] [place] [address] 08/11/2025 1:00 PM EST Office Visit [facility] [address] [place] [address] Don Matias PA-C [address] [place] [address] Scheduled Procedures Name Priority Associated Diagnoses Date/Ti me ARTHROPLASTY, KNEE, TOTAL, [id number] Primary osteoarthritis of right knee 08/02/2025 8:30 AM EST Health Maintenance Due Date Last Done Comments Wellness Exam Medicare 1963 Hepatitis C Screening 1977 Breast Cancer Screening 1999 Cologuard 01/05/2004 FIT 01/05/2004 Sigmoidoscopy 01/05/2004 Virtual Colonography 01/05/2004 Zoster (2 of 2) 10/30/2020 09/04/2020 Bone Density Screening 01/05/2024 COVID-19 Vaccine ( season) 2025 Influenza Vaccine (#1) 2025 4, 06/24/2023, 06/30/2022, Additional history exists Colon Cancer Screening 05/24/2030 Colonoscopy 05/24/2030 05/25/2025 DTaP/TDaP/Td (3 - Td or Tdap) 06/26/2033 06/26/2023, 12/01/2019 Pneumococcal Vaccine 50+ Completed 024, 10/13/2018, 12/27/2010 Hepatitis B Vaccine Aged Out No longe r eligible based on patient's age to complete this topic Meningococcal B Vaccine Aged Out No l onger eligible based on patient's age to complete this topic Medical Devices Implanted Type Area Engineering Operator Device Identifier Shelf Expiration Date Model / Serial / Lot Triathlon Cr Fem Component - Beaded W/Iker - [id number] Implanted:Qty: 1 on 02/26/2024 by Don [facility]ilera MD at [facility] Left: Knee POLINA RECON 11/23/2028 5517-F-101 / / [id number] Triathlon Cs Insert #1 9mm - [id number] Implanted:Qty: 1 on 02/26/2024 by Don Aguilera MD at [facility] Left: Knee POLINA RECON 12/10/2028 5531-G-109- E / / [id number] Triathlon Tritanium Baseplate Size 1 - [id number] Implanted:Qty: 1 on 02/26/2024 by Don Aguilera MD at [facility] Left: Knee POLINA RECON 12/03/2028 5536-B-100 / / [id number] Tritanium Asymmetric Metal Backed Patella A32x10 - [id number] Implanted:Qty: 1 on 02/26/2024 by Don Aguilera MD at [facility] Left: Knee POLINA RECON 11/21/2028 5552-L-320 / / [id number] Knee Trit/X3ins/Tri - [id number] Implanted:Qty: 1 on 02/26/2024 by Don Aguilera MD at [facility] POLINA RECON 5000-0- 000 / / Procedures Procedure Name Priority Date/Time Associated Diagnosis Comments COLONOSCOPY Routine 05/25/2025 9:12 AM EDT Encounter for colonoscopy due to history of colonic polyp INTRAOP AIRWAY PLACEMENT Routine 05/25/2025 8:53 AM EDT GLUCOSE METER POC Routine 05/25/2025 8:2 4 AM EDT MRI KNEE RIGHT WO CONTRAST Routine 05/10/2025 6:38 PM EDT Right knee pain, unspecified chronicity Sprain of right knee, unspecified ligament, initial encounter Primary osteoarthritis of right knee Acute medial meniscus tear of right knee, initial encounter from Last 3 Months Results * COLONOSCOPY (05/25/2025 9:12 AM EDT) [...] MD Performing Provider Kalyan Crowder MD Anesthesiologist FEMI Casey CRNA, RN Business Planner Medications See Anesthesia Record. Preprocedure A history [...] Patient Out - Proc. Room 09:12 AM us Aurora Myers MD ENDOSCOPY PROCEDURE ORDE RABLES Final Result * INTRAOP AIRWAY PLACEMENT (05/25/2025 8:53 AM EDT) Narrative [facility] - 05/25/2025 8:53 AM EDT Sendy Martinez CRNA 05/25/2025 9:03 AM Intraop Airway Placement: Date/Time: 05/25/2025 8:53 AM Airway type: Nasal cannula salter us Kalyan Crowder MD [place] ANESTHESIA Final Result [facility] [address] [place] [address] * (ABNORMAL) GLUCOSE METER POC (05/25/2025 8:24 AM EDT) Glucose Meter POC 151(H) 70 - 100 mg/dL 05/25/2025 8:25 AM EDT [facility] Sample Type Capillary 05/25/2025 8:25 AM EDT [facility] Patient Status Non-Critical Patient 05/25/2025 8:25 AM EDT [facility] Blood BLOOD SPECIMEN / Unknown 05/25/2025 8:24 AM EDT 05/25/2025 8:25 AM EDT Aurora Myers MD POINT OF CARE TEST ORDER LEI Final Result [facility] [address] [place] [address] * MRI KNEE RIGHT WO CONTRAST (05/10/2025 6:38 PM EDT) Narrative [facility] - 05/10/2025 6:38 PM EDT Please see the scanned MRI report associated with this order on the Imaging tab of the patient's chart. us Don Matias PA-C IMG MRI ORDERABLES Final Re sult [facility] from Last 3 Months Insurance [place] [address] [employer] [facility] [place] [address] [employer] MEDICARE SUPPL[place] [facility] MEDICARE [place] PART A AND B [facility] Care Teams Electric Distribution Engineer Relationship Specialty Start Date End Date Portillo Hooper MD [address] [place] [address] [place] [address] PCP - General Internal Medicine-Adolescent Medicine 01/13/22
--- NOTE | 2025-05-30 12:49 | MM_ITS ---
PROCEDURE INFORMATION: Exam: MG Bilateral Screening 3D Mammography Exam date and time: 05/30/2025 1:03 PM Age: 65 years old Clinical indication: Screening mammogram TECHNIQUE: Imaging protocol: Bilateral Screening tomosynthesis and 2D mammography including computer-aided detection (CAD) when performed. COMPARISON: 1. MG MM DIG SCREENING MAMM BI W/CAD 05/04/2024 11:25 AM 2. MG MM DIG SCREENING MAMM BI W/CAD 03/10/2023 10:33 AM 3. MG MM DIG SCREENING MAMM BI W/CAD 02/11/2022 10:17 AM 4. MG MM DIG SCREENING MAMM BI W/CAD 01/14/2021 11:01 AM FINDINGS: MAMMOGRAPHY: Breast composition: There are scattered areas of fibroglandular density. Mass: None. Architectural distortion: No new or suspicious architectural distortion. Calcifications: No new or suspicious calcifications are present Asymmetric density: No new or suspicious asymmetric density is present Skin thickening: None. Axillary adenopathy: None. IMPRESSION: No mammographic evidence of malignancy. Recommend annual screening mammography unless otherwise clinically indicated. ASSESSMENT: BI-RADS category 1: Negative.
--- OUTSIDE RECORDS SUMMARY | 2025-05-30 12:49 | XMS_ITS | Encounter Summary ---
Author Organization [place] [address] Care Team Providers Care Plant Guard Name Role Phone Portillo Hooper MD Primary Care Provider [phone] Reason for Visit * Reason Onset Date Comments Other 05/04/2025 Encounter Details Date Type Department Care Team (Late st Contact Info) Description 05/04/2025 Telephone [facility] [address], 3RD [place] [address] Abby Garcia RMA Other Social History Tobacco Use Types Packs/Day Years [...] on file documented as of this encounter Miscellaneous Notes * Telephone Encounter - Abby Garcia RMA - 05/15/2025 2:50 PM EDT Pt called to go over more questions about prep. All questions were answered. * Telephone Encounter - Cat Meyer ABR-OE - 05/08/2025 11:35 AM EDT Pt called to ask what dulcolax is. I advised it is a stool softener for pt to take leading up to colon. Pt states she wasn't aware of 2 day prep, but we reviewed that she does have prep instructions and that she knows how to read to find prep times. We reviewed how to take dulcolax several times aspt is to take them for 3 days prior to 2 day prep. Pt also confirmed no longer taking Jardiance. * Telephone Encounter - Abby Garcia RMA - 05/04/2025 12:12 PM EDT Pt called to go over all of her medications . All questions were answered. documented in this encounter Plan of Treatment Upcoming Encounters Date Type Department Care Team (Latest Contact Info) Description 06/13/2025 12:30 PM EDT Appointment Elke BISHOP [address] [place] [address] Don Aguilera MD [address] [place] [phone] 08/02/2025 8:30 AM EST Hospital [facility] [address] [place] [address] Don Aguilera MD [address] [place] [address] 08/02/2025 8:30 AM EST - 08/02/2025 9:40 AM EST [facility] [address] [place] [address] Don Aguilera MD [address] [place] [address] ARTHROPLASTY, KNEE, TOTAL, [id number] 08/07/2025 2:30 PM EST [facility] [address] [place], [place] [phone] Wyatt Polk, PT [address] [place] [address] 08/11/2025 1:00 PM EST [facility] [address] [place] [address] Don Matias, PAErinC [address] [place] [address] Scheduled Procedures Name Priority Associated Diagnoses Date/Ti me ARTHROPLASTY, KNEE, TOTAL, [id number] Primary osteoarthritis of right knee 08/02/2025 8:30 AM EST documented as of this encounter Visit Diagnoses Not on filedocumented in this encounter Care Teams Plant Guard Relationship Specialty Start Date End Date Portillo Hooper MD [address] [place] [address] PCP - General Internal Medicine-Adolescent Medicine 01/13/22 documented as of this encounter
--- OUTSIDE RECORDS SUMMARY | 2025-05-30 12:49 | XMS_ITS | Encounter Summary ---
Author Organization [place] [address] Care Team Providers Care Valet Runner Name Role Phone Portillo Hooper MD Primary Care Provider [phone] Reason for Visit * Reason Onset Date Comments Other 05/16/2025 Encounter Details Date Type Department Care Team (Late st Contact Info) Description 05/16/[address] [facility] [address] [place] [address] Juan Lam LPN Other Social History Tobacco Use Types Packs/Day [...] encounter Miscellaneous Notes * Telephone Encounter - Juan Lam LPN - 05/16/2025 1:41 PM EDT Pt called having questions re:her 2 day prep. Went over her instructions w/her & informed her to call back if she has any further questions. documented in this encounter Plan of Treatment Upcoming Encounters Date Type Department Care Team (Latest Contact Info) Description 06/13/2025 12:30 PM EDT Appointment [facility] [address] [facility] [place] [address] Don Aguilera MD [address] [place] [address] 08/02/2025 8:30 AM EST Hospital Encounter [facility] [address] [place] [address] Don Aguilera MD [address] [place] [address] 08/02/2025 8:30 AM EST - 08/02/2025 9:40 AM EST Surgery [facility] [address] [place] [address] Don Aguilera MD [address] [place] [address] ARTHROPLASTY, KNEE, TOTAL, [id number] 08/07/2025 2:30 PM EST Office Visit [facility] [address] [place] [address] Wyatt Polk, PT [address] [place] [address] 08/11/2025 1:00 PM EST Office Visit [place] [id number] Don Matias PAErinC [address] [place] [address] Scheduled Procedures Name Priority Associated Diagnoses Date/Ti me ARTHROPLASTY, KNEE, TOTAL, [id number] Primary osteoarthritis of right knee 08/02/2025 8:30 AM EST documented as of this encounter Visit Diagnoses Not on filedocumented in this encounter Care Teams Valet Runner Relationship Specialty Start Date End Date Portillo Hooper MD [address] [place] [address] PCP - General Internal Medicine-Adolescent Medicine 01/13/22 documented as of this encounter
--- OUTSIDE RECORDS SUMMARY | 2025-05-30 12:49 | XMS_ITS | Encounter Summary ---
Author Organization [facility] Address [address] [place] [id number] Care Team Providers Care Distribution Operations Manager Name Role Phone Portillo Hooper MD Primary Care Provider [phone] Encounter Details Date Type Department Care Team (Late st Contact Info) Description 05/18/[address] [address] Don Aguilera MD [address] [place] [address] Social History Tobacco Use Types Packs/Day Years [...] encounter Miscellaneous Notes * Telephone Encounter - Debra Rodriguez Ortho Tech - 05/18/2025 4:15 PM EDT Left message advising patient to call back to discuss. It is fine for her to wait until spring if she would like too per Dr. Aguilera * Telephone Encounter - Lisette Madera, Clerical Staff - 05/18/2025 11:59 AM EDT Pt was seen today in office and had a question regarding surgery. Would it be OK to wait till spring to have surgery. Will it make a difference with her torn meniscus. Would you recommend doing surgery earlier? Please advise documented in this encounter Plan of Treatment Upcoming Encounters Date Type Department Care Team (Latest Contact Info) Description 06/13/2025 12:30 PM EDT Appointment [facility] [address] [place] [address] Don Aguilera MD [address] [place] [address] 08/02/2025 8:30 AM EST Hospital Encounter [facility] [address] [place] [address] Don Aguilera MD [address] [place] [address] 08/02/2025 8:30 AM EST - 08/02/2025 9:40 AM EST Surgery [facility] [address] [place] [address] Don Aguilera MD [address] ARTHROPLASTY, KNEE, TOTAL, [id number] 08/07/2025 2:30 PM EST Office Visit [facility] PT [address] [place], [place] [id number] Wyatt Polk, PT [address] [place] [id number] 08/11/2025 1:00 PM EST Office Visit [facility] [address] [place] [address] Don Matias, PA-C [address] [place] [address] Scheduled Procedures Name Priority Associated Diagnoses Date/Ti me ARTHROPLASTY, KNEE, TOTAL, [id number] Primary osteoarthritis of right knee 08/02/2025 8:30 AM EST documented as of this encounter Visit Diagnoses Not on filedocumented in this encounter Care Teams Distribution Operations Manager Relationship Specialty Start Date End Date Portillo Hooper MD [address] [place] [address] [place] [address] PCP - General Internal Medicine-Adolescent Medicine 01/13/22 documented as of this encounter
--- OUTSIDE RECORDS SUMMARY | 2025-05-30 12:49 | XMS_ITS | Encounter Summary ---
Author Organization [facility] Address [address] [place] [address] Care Team Providers Care Fiberglass Fabricator Name Role Phone Portillo Hooper MD Primary Care Provider [phone] Encounter Details Date Type Department Care Team (Late st Contact Info) Description 05/23/2025 Orders Only [facility] [place] [id number] Don Aguilera MD [address] [place] [address] Primary osteoarthritis of right knee (Primary Dx) Social History Tobacco Use Types Packs/Day Years [...] Description 06/13/2025 12:30 PM EDT Appointment [facility] [facility] [address] [place] [address] Don Aguilera MD [address] [place] [address] 08/02/2025 8:30 AM EST Hospital Encounter [facility] [address] [place] [address] Don Aguilera MD [address] [place] [phone] 08/02/2025 8:30 AM EST - 08/02/2025 9:40 AM EST Surgery [facility] [address] [place] [address] Don Aguilera MD [address] [place] [address] ARTHROPLASTY, KNEE, TOTAL, [id number] 08/07/2025 2:30 PM EST Office Visit [facility] [address] [place] [phone] Wyatt Polk, PT [address] [place] [address] 08/11/2025 1:00 PM EST Office Visit [facility] [address] [place] [address] Don Matias, PA-C [address] [place], [place] [phone] Scheduled Orders Name Type Priority Associated Diagnoses Orde r Schedule SURGICAL/PROCEDURE CASE REQUEST - [facility] Procedures Routine Primary osteoarthritis of right knee Ordered: 05/23/2025 Scheduled Procedures Name Priority Associated Diagnoses Date/Ti mn ARTHROPLASTY, KNEE, TOTAL, [id number] Primary osteoarthritis of right knee 08/02/2025 8:30 AM EST documented as of this encounter Visit Diagnoses Diagnosis Primary osteoarthritis of right knee- Primary Primary localized osteoarthrosis, lower leg Primary osteoarthritis of right knee Primary localized osteoarthrosis, lower leg documented in this encounter Care Teams Fiberglass Fabricator Relationship Specialty Start Date End Date Portillo Hooper MD [address] [place] [address] PCP - General Internal Medicine-Adolescent Medicine 01/13/22 documented as of this encounter
== END 2025-05-30 23:59 | disposition home or self-care (01) ==
LOC: RAD 12:46
PROVIDERS: PCP Internal Medicine Adolescent Medicine; Visit Provider Nurse Practitioner Family
DX: Z12.31 Encounter for screening mammogram for malignant neoplasm of breast (principal); R92.323 Mammographic fibroglandular density, bilateral breasts
CPT/HCPCS: 77063; 77067